=== PATIENT | male | born 1965 | race Caucasian/White ===

== ENCOUNTER 2017-07-25 09:30 | Outpatient (RCR) | payer OTHER, SELFPAY ==
--- NOTE | 2017-04-19 10:18 | HP.PTEVAL_ITS ---
Patient's Visit Information ANGE DEUTSCH JR is a 51 year old M referred to Physical Therapy by Radha Almazan DO with a diagnosis of s/p L shoulder labral repair, biceps tenodesis and open subpec. Date of Evaluation: 04/18/17 Physical Therapist: Noble Moya - Visit Plan Frequency: 2-3x /Week Duration: 8-12 weeks Plan: Start with PROM of L shoulder, no active elbow flexion. Add in inferior glides of GH joint with abd and flexion, avoid greater than 25deg of ER unitl following up with physician. Progress per protocol. - Subjective Subjective: Pt. is here today for his initial evaluation with diagnosis of s/p L shoulder labral repair, biceps tenodesis and open subpec. DOS: 03/15/17. Pt. reports no pain at rest. Pt. reports sleeping in reclinging chair with occassionally waking up at night. Pt. denies N/T in either UE. Pt. has been completing all HEP instructed by physician. 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 He reports initial injury happened years ago and his symptoms were progressively getting worse, trialed conservative treatment, but ultimately had surgery. He is to follow up with physician next week. Pt. is hopeful to reduce symptoms, regain motion and strength in order to get back to work without limitations. - Pain L shoulder Pain Intensity (Out of 10): 2 Pain Intensity Range: 1, 4 - Objective POSTURE: Pt. keeps LUE in guarded positioning at side across waist. Pt. has slightly elevated L shoulder (gaurding). Slight fwrd head positioning. Slightly rounded shoulders, bilaterally. PALAPTION: Pt. has normal well healing port holes, no signs of infection. Pt. has slight tenderness at LUT, L subacromial space and L biceps region. No pain in cervical spine and scapular muscles. NEUROLOGICAL: Pt. has normal sensation throughout bilateral UEs to light and shapr touch. Pt. has 2+ triceps bilaterally, did not test biceps. ROM : RUE- shoulder active- flexion 178deg, abd 177deg, functional ER C6, functional IR T10. LUE- PROM- flexion full, ext lacking 5deg. Shoulder0- flexion 91deg, abd 86deg, ER at 30deg of abd 12deg, IR at 30deg of abd 47deg. MMT- DNT LUE. RUE- wrist/elbow/shoulder 5/5 throught. - Goals Goal 1:: Pt. to be I with HEP. Goal Time Frame: 4-6 Weeks Goal 2:: Pt. to have increased PROM to full motion of L shoulder and elbow. Goal Time Frame: 4-6 Weeks Goal 3:: Pt. to ahve full AAROM of L shoulder with minimal increase in symptoms allowing for increased quality of life. Goal Time Frame: 4-6 Weeks Goal 4:: Pt. to be able to sleep in bed without increase in symptoms allowing for increased quality of life. Goal Time Frame: 4-6 Weeks Goal 5:: Pt. have improved strength to greater than 4/5 with MMT of L shoulder allowing for increased ability to complete ADLs and work activities. Goal Time Frame: 8-12 Weeks - Rehabilitation Potential Physical Therapy Diagnosis: Pt. has signs and symptoms consistent with s/p L shoulder labral repair, biceps tenodesis and open subpec and subsequent hypomobility, weakness, pain and decreased functional use of LUE. Pt. would benefit from PT to increase ROM, progress strength and get back to work releated activities once able. Rehabilitation Potential: Good - Anticipated Interventions Patient/Client Instruction: Educate patient on: Condition, Plan of Care, Risk Factors, Benefits of Fitness Program For the Purpose of:: To foster healthy habits, To improve decision making, To facilitate caregiver knowledge, To improve self management, To prevent re-injury , To improve ability to perform tasks related to life management, To improve tolerance to ADL's Therapeutic Exercise to Include: Strength training, Power training, Postural training, Flexibilty training, Passive ROM, Active ROM For the Purpose of:: To decrease pain, To increase ROM, To increase oxygenation perfusion, To improve muscle performance and motor function, To improve performance and independence with ADL's, To improve health of tissue, To decrease soft tissue restriction, To increase flexibility/ROM Manual Therapy Techniques to Include: Mobilization, Soft tissue mobilization For the Purpose of:: To decrease pain, To decrease swelling/inflammation, To increase ROM, To increase oxygenation perfusion, To improve muscle performance and motor function IF ES: Yes Cryotherapy (ice pack, ice massage): Yes For the Purpose of:: To decrease pain, To decrease swelling/inflammation, To increase ROM Thank you for the opportunity to evaluate your patient. For Medicare and Medicare HMO plans, please review the plan of care and approve it. It will need to be FAXED BACK to us at [phone] for Medicare purposes. Please let me know if there are questions or concerns regarding this plan of care. Physician Signature: Date:
--- NOTE | 2017-06-26 07:48 | HP.PTREVAL_ITS ---
Radha Almazan, DO, It has been my pleasure to treat ANGE DEUTSCH JR over the last 11 visits for s/p L shoulder labral repair, biceps tenodesis and open subpec. Please see the progress note below for an update on the physical therapy plan of care! Subjective: Pt reports that he is feeling good. Returns to Dr. Almazan tomorrow. Objective/Function: Talked with pt. this date after he met with physician. Physician wants us to continue with ROM into rotations and end range overhead. Progress strengthening once ready. pt. reports no pain over the phone. Pt. is lacking ~10deg of end range flexion and abduction. He has greatest limitation into functional ER and IR, C3 and L5 respectively. Pt. has 4-/5 strength throughout. He is using his arm more freely, but contiunes to lack necessary strength and stability. Pt. 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 Plan Plan: Asking for visit extension this date to x2 per weeks for another 4 weeks. Pt. to continue with end range PROM, AAROM and light strengthening as this point in time. Goals Goal 1:: Pt. to be I with HEP. Goal Time Frame: 4-6 Weeks Goal Progress: Goal Met Goal 2:: Pt. to have increased PROM to full motion of L shoulder and elbow. Goal Time Frame: 4-6 Weeks Goal Progress: Progressing Goal 3:: Pt. to ahve full AAROM of L shoulder with minimal increase in symptoms allowing for increased quality of life. Goal Time Frame: 4-6 Weeks Goal Progress: Progressing Goal 4:: Pt. to be able to sleep in bed without increase in symptoms allowing for increased quality of life. Goal Time Frame: 4-6 Weeks Goal Progress: Goal Met Goal 5:: Pt. have improved strength to greater than 4/5 with MMT of L shoulder allowing for increased ability to complete ADLs and work activities. Goal Time Frame: 8-12 Weeks Goal Progress: Progressing Anticipated Interventions Patient/Client Instruction: Educate patient on: Condition, Plan of Care, Risk Factors, Benefits of Fitness Program For the Purpose of:: To foster healthy habits, To improve decision making, To facilitate caregiver knowledge, To improve self management, To prevent re-injury , To improve ability to perform tasks related to life management, To improve tolerance to ADL's Therapeutic Exercise to Include: Strength training, Power training, Postural training, Flexibilty training, Passive ROM, Active ROM For the Purpose of:: To decrease pain, To increase ROM, To increase oxygenation perfusion, To improve muscle performance and motor function, To improve performance and independence with ADL's, To improve health of tissue, To decrease soft tissue restriction, To increase flexibility/ROM Manual Therapy Techniques to Include: Mobilization, Soft tissue mobilization For the Purpose of:: To decrease pain, To decrease swelling/inflammation, To increase ROM, To increase oxygenation perfusion, To improve muscle performance and motor function IF ES: Yes Cryotherapy (ice pack, ice massage): Yes For the Purpose of:: To decrease pain, To decrease swelling/inflammation, To increase ROM Please do not hesitate to contact me at [phone] by phone or Fax: if you have questions or concerns regarding this new plan of care! Sincerely, Noble Moya
--- NOTE | 2017-10-16 07:57 | HP.PTDCNRP_ITS ---
HP - Discharge Summary (1) - Patient Information ANGE DEUTSCH was seen in my office for initial evaluation on 04/18/17. The following Plan of Care was established for this patient: Initial Frequency: 2-3x /Week Initial Duration: 8-12 weeks - Anticipated Interventions Patient/Client Instruction: Educate patient on: Condition, Plan of Care, Risk Factors, Benefits of Fitness Program For the Purpose of:: To foster healthy habits, To improve decision making, To facilitate caregiver knowledge, To improve self management, To prevent re-injury , To improve ability to perform tasks related to life management, To improve tolerance to ADL's Therapeutic Exercise to Include: Strength training, Power training, Postural training, Flexibilty training, Passive ROM, Active ROM For the Purpose of:: To decrease pain, To increase ROM, To increase oxygenation perfusion, To improve muscle performance and motor function, To improve performance and independence with ADL's, To improve health of tissue, To decrease soft tissue restriction, To increase flexibility/ROM Manual Therapy Techniques to Include: Mobilization, Soft tissue mobilization For the Purpose of:: To decrease pain, To decrease swelling/inflammation, To increase ROM, To increase oxygenation perfusion, To improve muscle performance and motor function IF ES: Yes Cryotherapy (ice pack, ice massage): Yes For the Purpose of:: To decrease pain, To decrease swelling/inflammation, To increase ROM This patient was last seen in our office 07/25/17. Pertinent comments regarding their Physical therapy will appear below: Pt. was seen for her R RTC repiar. HE progressed as expected with PT. He was in his last phase of strengthening, but continued to have heavy, fatigue feeling with increased lifting. He had progress as expected with ROM. He was to trial PT on own and follow up with PT if needed. Pt. has not been seen in ~3 months and will be DC from PT at this point in time. At this point I will be discontinuing this patient from physical therapy. I would be happy to see this patient again in the future if found appropriate by the physician. Thank you! Noble Moya
== END 2017-07-25 19:00 | disposition home or self-care (01) ==
LOC: PT 09:30
PROVIDERS: Family Provider Family Medicine; PCP Family Medicine; Visit Provider Orthopaedic Surgery
DX: Z98.890 Other specified postprocedural states (principal)
CPT/HCPCS: 97014; 97110; 97161; G0283

== ENCOUNTER → 2019-01-31 | Outpatient (CLI) | payer OTHER, SELFPAY ==
[2018-11-13 13:50] VITALS: BMI 36.2
--- NOTE | 2019-01-31 09:39 | US_ITS ---
STUDY: THYROID ULTRASOUND REASON FOR EXAM: Male, 53 years old. Tightness in throat, voice change TECHNIQUE: Ultrasound evaluation of the thyroid was performed with real-time and static montano-scale imaging. COMPARISON: None. FINDINGS: RIGHT LOBE: The right lobe of the thyroid gland measures 4.9 x 2.2 x 2.1 cm. There is a homogeneous echotexture. 2 separate solid lesions, larger measures 0.8 x 1.2 x 0.7 cm, the smaller measures 0.5 x 0.5 x 0.4 cm.. LEFT LOBE: The left lobe of the thyroid gland measures 5.5 x 1.9 x 1.6 cm. There is a homogeneous echotexture. 2 separate solid nodules noted as well, larger measures 0.9 x 0.7 x 0.7 cm, smaller measures 0.5 x 0.5 x 0.3 mm ISTHMUS: The isthmus measures 3.0 mm. The regional lymph nodes are normal. There is hyperemia. US/Thyroid IMPRESSION: Enlarged homogeneous thyroid gland with hyperemia. 2 separate solid nodules noted in each thyroid lobe, largest measures slightly more than 1 cm in the right lobe, and slightly less than 1 cm in the left lobe. Because there are no previous studies available for comparison, and sonography cannot distinguish between benign and aggressive nodules, further evaluation with thyroid uptake study recommended. If any nodule should demonstrate suspicious characteristics, biopsy would be recommended for further evaluation. If not, six-month follow-up recommended to assure stability Electronically Signed: Dutch Womack MD at 11:33 EDT , Service support ,
== END | disposition home or self-care (01) ==
LOC: US 09:37
PROVIDERS: Family Provider Family Medicine; PCP Family Medicine; Referring Provider Family Medicine; Visit Provider Family Medicine
DX: R49.9 Unspecified voice and resonance disorder (principal)
CPT/HCPCS: 76536

== ENCOUNTER → 2019-02-11 | Outpatient (CLI) | payer OTHER, SELFPAY ==
[2018-11-13 13:50] VITALS: BMI 36.2
--- NOTE | 2019-02-11 08:20 | NM_ITS ---
CLINICAL: 53-year-old male with reported history of thyroid nodularity and complaint of dysphagia and hoarseness. I-123 THYROID UPTAKE and SCAN COMPARISON: Thyroid ultrasound report 01/31/2019 FINDINGS: The patient was administered a 329 uCi I-123 capsule by mouth. The 4-hour I-123 radioactive iodine thyroidal uptake was calculated to be 12.5 % (normal 5 to 25 %). The 24-hour I-123 radioactive iodine thyroidal uptake was calculated to be 26.8 % (normal 5 to 40 %). The I-123 thyroid scan demonstrates homogeneous radiopharmaceutical concentration throughout both lobes of a U-shaped thyroid gland. There are no colloidal parenchymal hypofunctioning cold nodules noted in either lobe of the thyroid gland. NM/Thyroid Uptake Single or Mult IMPRESSION: 1. NORMAL 4- and 24-hour I-123 radioactive iodine thyroidal uptakes. 2. The I-123 thyroid scan is consistent with stage I nodular colloid goiter secondary to the presence of isthmus radiopharmaceutical concentration. (Reese et al, J Nucl Med 32: 1455, 1990). 3. No hypofunctioning-cold nodules are identified. Electronically Signed: Rex Purcell DO at 0:37 EDT Tel , Service support ,
== END | disposition home or self-care (01) ==
LOC: NM 08:18
PROVIDERS: Family Provider Family Medicine; PCP Family Medicine; Referring Provider Family Medicine; Visit Provider Family Medicine
DX: E04.2 Nontoxic multinodular goiter (principal)
CPT/HCPCS: 78012; A9516

== ENCOUNTER → 2019-07-19 09:44 | Outpatient (CLI) | payer OTHER, SELFPAY ==
[2019-06-20 16:04] VITALS: BMI 36.2
--- NOTE | 2019-07-19 09:48 | US_ITS ---
STUDY: THYROID ULTRASOUND REASON FOR EXAM: Male, 53 years old. F/U NODULES TECHNIQUE: Ultrasound evaluation of the thyroid was performed with real-time and static montano-scale imaging. COMPARISON: Thyroid ultrasound January 31, 2019; nuclear medicine thyroid uptake and scan February 11, 2019 FINDINGS: RIGHT LOBE: The right lobe of the thyroid gland measures 5.2 x 2.1 x 1.8 cm. There is a homogeneous echotexture. A stable, heterogeneous 9.9 x 6.7 x 10 mm solid nodule with some intralobular nodular flow on color Doppler is again noted in the posterior lower pole. Anterior and just inferior to this is a stable 6.3 x 4.0 x 5.1 mm solid nodule with hypoechoic rim LEFT LOBE: The left lobe of the thyroid gland measures 5.1 x 1.8 x 1.8 cm. There is a homogeneous echotexture. Well-defined 8.4 x 7.0 x 7.1 mm nodule with calcified anterior margin is again seen in the lower pole. Just superior to this is a stable, moderately defined 5 x 2.4 x 5.1 mm hypoechoic nodule. ISTHMUS: The isthmus measures 4 mm. Moderately defined 4.7 x 5.3 x 2.15 mm nodule with a hypoechoic rim is now apparent in the right thyroid isthmus. The regional lymph nodes are normal. US/Thyroid IMPRESSION: Stable bilateral thyroid nodules, as described, consistent with a multinodular goiter. Electronically Signed: Dutch Pacheco MD at 12:24 EST , Service support ,
== END ==
PROVIDERS: Family Provider Family Medicine; PCP Family Medicine; Referring Provider Family Medicine; Visit Provider Family Medicine
DX: E04.2 Nontoxic multinodular goiter (principal)
CPT/HCPCS: 76536

== ENCOUNTER → 2019-12-27 15:21 | Outpatient (CLI) | payer OTHER, SELFPAY ==
[2019-06-20 16:04] VITALS: BMI 36.2
--- NOTE | 2019-12-27 15:24 | US_ITS ---
STUDY: THYROID ULTRASOUND REASON FOR EXAM: Male, 54 years old. F/U NODULES TECHNIQUE: Ultrasound evaluation of the thyroid was performed with real-time and static montano-scale imaging. COMPARISON: Prior thyroid ultrasound of December 18, 2019 FINDINGS: RIGHT LOBE: The right lobe of the thyroid gland measures 5.7 x 1.8 x 2.0 cm. There is a homogeneous echotexture. There is a 14 x 12 x 8 mm solid nodule of the lower pole and a 2 x 7 x 4 mm nodule of the lower pole which do not appear to be substantially changed on [id number] comparison. LEFT LOBE: The left lobe of the thyroid gland measures 5.7 x 1.8 x 1.9 cm. There is a homogeneous echotexture. There is a 7 x 7 x 6 mm solid nodule of the lower pole with calcific rim and shadowing and an adjacent ovoid solid nodule measuring 6 x 4 x 3 mm not substantially changed on [id number] comparison. ISTHMUS: The isthmus measures 4 mm. There is a 5 x 4 x 2 mm solid nodule in the isthmus to the right of midline not changed from prior exam.. The regional lymph nodes are normal. US/Thyroid IMPRESSION: No substantial change from the prior exam. Multiple nodules as listed above have not changed on [id number] comparison Electronically Signed: Chioma Nix MD at 16:05 EDT , Service support ,
== END ==
PROVIDERS: PCP Family Medicine; Referring Provider Family Medicine; Visit Provider Family Medicine
DX: E04.2 Nontoxic multinodular goiter (principal)
CPT/HCPCS: 76536

== ENCOUNTER → 2020-08-06 | Outpatient (CLI) | payer OTHER, SELFPAY ==
[2020-07-10 09:24] VITALS: BMI 37.0
== END | disposition home or self-care (01) ==
PROVIDERS: PCP Family Medicine; Referring Provider Family Medicine; Visit Provider Family Medicine
DX: U07.1 COVID-19 (principal)
CPT/HCPCS: 87635; C9803; U0005; U0003

== ENCOUNTER → 2020-09-08 13:00 | Outpatient (CLI) | payer OTHER, SELFPAY ==
[2020-07-10 09:24] VITALS: BMI 37.0
== END ==
PROVIDERS: PCP Family Medicine; Referring Provider Family Medicine; Visit Provider Family Medicine
DX: G47.19 Other hypersomnia (principal); R06.83 Snoring; R53.83 Other fatigue
CPT/HCPCS: 95806

== ENCOUNTER → 2020-09-21 10:33 | Outpatient (CLI) | payer OTHER, SELFPAY ==
[2020-07-10 09:24] VITALS: BMI 37.0
== END ==
PROVIDERS: PCP Family Medicine; Visit Provider Family Medicine
DX: Z46.89 Encounter for fitting and adjustment of other specified devices (principal)

== ENCOUNTER 2021-08-02 09:11 | Outpatient (RCR) | payer OTHER, SELFPAY ==
--- NOTE | 2021-08-02 09:00 | BH.SGPN.GN ---
Behaviors/Verbalizations/Mental Status: [] Eye contact is fair. Motor activity is appropriate. Appearance is casual. Speech is Appropriate. Mood is depressed and anxious. Affect is constricted. Thoughts are linear and logical. No evidence of psychosis. Reviewed daily check in sheet and no SI indicated. Client Response/Progress/Benefit: [] Pt was an en engaged participant AEB sharing openly with group and attentive to others. Emotion for today is optimistic. Pt stated this weekend was busy which he reported is now stressful for him. Pt reported in the past he was a very outgoing, social person but recently hasn't been wanting to be around others. Pt stated he should be able to enjoy spending time with others but would rather just stay home. Pt identified mental health positive as using opposite action to make himself go out with friends/family over the weekend. Benefited from group support, encouragement, and feedback from group. Will continue IOP to improve daily functioning, increase healthy coping skills and prevent decompensation.
--- NOTE | 2021-08-02 09:15 | BH.COMM ---
Communication Note - Communication with Client Communication Note: Met with patient to complete initial paperwork. No significant changes since pre-admission screening. Completed [place] suicide screening with low risk. Denies active SI, plan, or intent in the past [address] 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
--- NOTE | 2021-08-02 10:05 | BH.SGPN.GN ---
Behaviors/Verbalizations/Mental Status: []Client alert and oriented, casually dressed and groomed. Eye contact good. Motor activity appropriate. Speech within normal limits. Affect congruent, mood anxious. Thoughts linear, logical, no signs of hallucinations or delusions. Client Response/Progress/Benefit: []Client responded well to session AEB contributing to group discussion and listening attentively to others. Group worked together to define anger and discussed its internal and external impacts. Client discussed how anger can cause physical symptoms including high blood pressure and increased heart rate. Client completed the anger iceberg exercise and identified emotions that tend to underlie anger. Client gained awareness of their typical response to anger, which includes: being critical of others, making mean comments, feeling jealous of others, and having a short temper. Client identified embarrassment, lack of control, fear, and anxiety among emotions that often come out as anger. Client appeared to benefit from increased understanding of the impact of anger on mental health. Will continue IOP treatment to increase mood stability and depression management skills. Narrative Note: []
--- NOTE | 2021-08-02 11:11 | BH.SGPN.GN ---
Behaviors/Verbalizations/Mental Status: []Client alert and oriented, casually dressed and groomed. Eye contact good. Motor activity appropriate. Speech within normal limits. Affect congruent, mood anxious and depressed. Thoughts linear, logical, no signs of hallucinations or delusions. Client Response/Progress/Benefit: []Pt first day in treatment, did well to engage AEB participating in discussion, completing group activity, and taking notes. Pt did well to use calming and self-regulation skills to cope with frustrations while working with group to complete the challenge activity. Reflecting that adjusting expectations aided in improving his ability to not get frustrated in the activity. Contributed as participants worked to brainstorm healthy coping skills for better managing anger which included: reaching out to supports, art, taking breaks, exercise, DDD, and proactively communicating needs with supports. Pt appeared to benefit from identifying different techniques to manage anger as well as gaining awareness of the potential internal and external costs of anger. Pt selected having a coin or texture object to fidget with as a skill to begin practicing to better manage anger. Will continue IOP tx to continue to increase mental health insight, improve healthy coping repertoire, as well as prevent decompensation. Narrative Note: []
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
--- NOTE | 2021-08-04 10:10 | BH.SGPN.GN ---
Behaviors/Verbalizations/Mental Status: []Eye contact is good. Motor activity is appropriate. Appearance is casual. Speech is WNL. Mood is dysthymic. Affect is constricted. Thoughts are linear and logical. No evidence of psychosis. Client Response/Progress/Benefit: [] Pt was an active participant in group discussions. Attentive during psychoeducation. Pt along with peers added their perspective on the definition of stigma as it relates to mental health. Pt participated in interactive group discussion on the topic. Pt worked with group to identify impact of stigma. Pt stated social stigma has kept him from staying on medications, not seeking help, hiding his depression, and minimizing symptoms. Pt reported self-stigma has impacted him by limiting his life goals, hiding his symptoms, and fear of being found out. Benefited from increased awareness of mental health stigma and how it could impact patient. Will continue in IOP to increase utilization of healthy supports, improve healthy coping skills, and prevent decompensation.
[2021-08-04 10:44] VITALS: BP 140/92; PULSE 57
--- NOTE | 2021-08-04 11:13 | BH.SGPN.GN ---
Behaviors/Verbalizations/Mental Status: []Client alert and oriented, casually dressed and groomed. Eye contact good. Motor activity appropriate. Speech within normal limits. Affect congruent, mood depressed and anxious. Thoughts linear, logical, no signs of hallucinations or delusions. Client Response/Progress/Benefit: []Client engaged participant AEB client participating in the activity, providing some input during small group discussion, and listening attentively to others. Continues to do well in making progress in overall group participation. Group brainstormed strategies to combat social and perceived stigma which included: educating themselves and others, no longer using negative language about mental illness, communicating with supports, advocacy, and attending support groups. Client shared one thing he can personally do to combat stigma is to more openly speak with his family about his mental health, as well as encourage them to open up about their own mental health struggles. Appeared to benefit from increasing awareness of strategies to combat stigma. Will continue IOP tx to continue to promote acceptance of his mental health struggles, reduce distorted thinking patterns which reinforce depression and anxiety, and continue to improve healthy coping skills and communication with supports. Narrative Note: []
--- NOTE | 2021-08-04 12:38 | PCM.BH.PSYEV ---
Psychiatric Evaluation Initial Evaluation Initial Evaluation: History of Present Illness: [] The patient is a 55-year-old male who has been for 12 years to his second and currently lives with his , 23-year-old daughter, 7-year-old steps daughter and 21-year-old stepson. The patient was referred to the [facility] behavioral health IOP program by his counselor and his primary care doctor for worsening symptoms of depression and panic attacks which have resulted in him being increasingly unable to function in the past few months. 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 The patient's current is 43 years old and she is supportive and is a police academy instructor. The patient feels his symptoms of depression started in March 2021 which was the third year anniversary of his father's . He denies any other recent stressors. He endorses having regret about past decisions and actions of his and guilt and panic attacks. His panic attacks were severe and frequent however they have improved since he was placed on Zoloft 1 month ago and his most recent panic attack was 3 weeks ago. He was feeling hopeless but he said he is much less hopeless now. He does endorse feeling guilty still but no worthlessness. He is depressed but less depressed than he was a month ago before starting Zoloft. He still has decreased motivation and has been isolating himself. He is still not enjoying too many things. He used to be a runner and run every day in the past and even do marathons however he was injured in the past. He used to exercise daily but the most recent time he exercised was 3 weeks ago. His appetite was a little decreased but he feels it is okay now and he has lost a lot of weight up to 49 pounds but he says that the weight loss was intentional over the past year and he has been trying to lose weight. He feels his weight is stable now and he is not losing. His sleep was decreased but is now up to set 6 or 7 hours a night since starting Zoloft 1 month ago. Energy level is low concentration is better now but still not normal. He endorses having passive thoughts that he would not care if he but less now than he was a month ago. He denies suicidal ideation, plan for suicide, thoughts of self-harm, homicidal ideation, hallucinations, delusions or symptoms of matthew ever. He is a worrier by nature and is and he has been ruminating negatively. He denies a history of OCD, eating disorder, trauma or PTSD. He does avoid looking at any pictures of his family from the past because this triggers feelings of grief, loss and guilt still. Current Psychiatric Medications: [] Zoloft 100 mg p.o. daily (started June 28, 2021 and the dose was increased to 100 mg 2 weeks ago); Xanax 1 mg, 1/2 tablet p.o. nightly as needed for panic attack (he last took this several weeks ago and has not needed it lately) Past Psychiatric History: [] No psychiatric admissions ever. No suicide attempts ever. He has seen a counselor twice only. He first took psych medications after his divorce at age 38 and that is when he got his first panic attacks and his first experience with counseling. He was first depressed in seventh grade and then he was depressed off and on his whole life since about every 3 to 4 years. He feels his depression has worsened in severity as he got older. His past medications include only Prozac and he has gone on and off this medication for many years. No other psych meds ever. Substance Use History: [] He chewed tobacco for 20 years but he quit this 13 years ago. He never smoked cigarettes. No vaping. He used marijuana only about 15 times and has not used it since his teen years. He used cocaine twice in college only and none since. No other drug use ever. No rehab ever. He drinks alcohol about 2-3 drinks weekly lately. Has never been a heavy drinker or had a problem with alcohol. Allergies: [] No known allergies Medications: [] No other medications currently Past Medical History: [] GERD, obstructive sleep apnea which he uses CPAP for.; He had COVID-19 in August 2020 but had no respiratory symptoms and was not hospitalized and has no sequela. History of kidney stones in the past. He had back surgery for an L4 disc issue in the past and had left shoulder surgery. He also had a cholecystectomy in the past. Family Psychiatric History: [] Father at age 84 of complications from a stroke and other. His father had his first stroke at age 66 or so. Mother is 78 years old and living. His daughter has depression and anxiety but he is not sure if anyone else in the family has had any issues with mental health because his family does not talk about these issues. He had a paternal uncle committed suicide with a gun when he was over 80 years old. No other suicides in the family. His paternal grandfather and paternal uncles have alcoholism. Personal/Social History: [] The patient was born in [place] and raised in [place] until eighth age third grade when they moved back to [place]. His parents were and loving parents. His father was not affectionate but there was no verbal physical or sexual abuse. The patient is the middle child and has a brother 2 years older and a brother 2 years younger than him. They were close when young but are less close now. School was good for him and he liked it but grades were not very important to him. He had friends some play football and track. 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 He got for the first time at age 31 and this marriage lasted 7 years. He has one 23-year-old daughter from that marriage. He says the divorce was his fault it was due to his depression and anger issues. Marriage #2 was 12 years ago and has no abuse in it. His is supportive of him. He has a 21-year-old stepson and a 7-year-old stepdaughter with his current . Legal History: [] No arrests. 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 No DUIs. No . Review of Systems: [] Some chronic pain issues in his back and shoulder but otherwise negative. Vital Signs: [] Reviewed in nurses notes. Mental Status Examination: [] Patient is a 55-year-old male who is seen wearing a mask and is casually dressed and groomed with good hygiene. He is ambulatory with a normal gait and appears normal for his stated age. He has no psychomotor agitation or retardation. He is cooperative and pleasant during the interview. Eye contact is good and speech is normal rate and rhythm and fluent with no pressure. Mood is depressed. Affect is constricted. Thought process is goal-directed and organized. Thought content: There is evidence of passive thoughts of but there is no evidence of suicidal ideation, plan for suicide, thoughts of self-harm, homicidal ideation, hallucinations, delusions or symptoms of matthew ever. Reality testing is intact. Intelligence is above average. Judgment is intact. Insight is fair to good. Impulsivity is low. Diagnoses: [] 1. Major depressive disorder, recurrent, severe without psychosis 2. Generalized anxiety disorder 3. Obstructive sleep apnea 4. Primary support and loss issues Plan: [] The patient will start the IOP program at [facility] in behavioral health as the structure, support, education, and group therapy will hopefully prevent worsening of the patient's symptoms which might require hospitalization. He felt safe during the interview and if it anytime he does not feel safe he will let us know or go to the emergency room. The risk, options, possible complications and side effects of medications were discussed with the patient and he understands and accepts these. He is tolerating the Zoloft well but feels that it is possible that the Zoloft decreased his sexual desire lately. He is not sure because he feels this could be due to the depression. The patient is counseled to stay on his Zoloft for at least 12 months or all the time because he keeps going on and off his medication and relapsing. He is encouraged to exercise daily since he used to be a runner and this might enable him to require less medication for his depression and anxiety. We may not increase the Zoloft dose over the current 100 mg dose as the patient is worried about sexual side effects are becoming numb feeling. We may add Wellbutrin later if the patient requires more medication for depression and anxiety. I will see the patient in follow-up in 2 weeks and he will continue to follow-up with his outpatient psychiatric and medical providers.
--- NOTE | 2021-08-04 12:52 | BH.DR.ITP ---
Initial Treatment Plan Patient Information Visit Information: ADMISSION DATE: EXPECTED LOS: 4-6 weeks Problems/Symptoms Problem #1:: Depression Symptom:: Sadness, lack of motivation, hopelessness, guilt, anhedonia, biological disruption of appetite, low energy, decreased concentration, passive thoughts of Problem #2:: Anxiety Symptom:: Rumination, worry, panic attacks, avoidance
--- NOTE | 2021-08-06 09:05 | BH.SGPN.GN ---
Behaviors/Verbalizations/Mental Status: [] Pt eye contact good, casually dressed, motor activity appropriate, speech normal rate and tone, mood euthymic and anxious, congruent affect, thoughts linear and intact, no evidence of delusions or hallucinations. Reviewed client?s symptom tracker, no indication of suicidal ideation, plan, or intent as of today. Client Response/Progress/Benefit: []Pt responded well to session AEB by listening to others, providing supportive feedback, and sharing thoughts and feelings with group. Pt reports mood as ?optimistic?, sharing that he took a major step in his communication with his children by speaking with them about his mental health. Expressed this as being very difficult and anxiety provoking as he was afraid of sharing them or being a cause for anxiety; however, found instead that they were supportive and proud of pt for doing so. Went on to note feeling more relieved since allowing himself to seek treatment and be more open about his mental health. Discussed feeling more capable of focusing and able to keep himself busy without needing others around. Progress noted in improved mood and communication with supports. Recommended continued IOP to further decrease anxiety and challenge stigma associated with mental health, improve skill knowledge and application, as well as prevent decompensation. Narrative Note: []
--- NOTE | 2021-08-06 10:10 | BH.SGPN.GN ---
Behaviors/Verbalizations/Mental Status: []Client alert and oriented, casually dressed and groomed. Eye contact good. Motor activity appropriate. Speech within normal limits. Affect congruent, mood euthymic. Thoughts linear, logical, no signs of hallucinations or delusions.[] Client Response/Progress/Benefit: []Pt was an attentive participant AEB taking notes and contributing throughout. Attentive during psychoeducation on Conflict Styles ( Avoidant, Competing, Accommodating, and Collaborating). Participated in interactive group discussion on benefits of conflict.? Pt agreed with peers that he has seen conflict as a bad thing based on past circumstances. Pt along with peers identified several reasons conflict is often avoided which included: anxiety, fear of other?s reaction, not wanting to face additional conflict, and negative past experiences. Pt reported connecting most competing and avoiding styles. Pt stated often his knee jerk reaction is to be competing which can cause issues with relationships. Reported avoiding results in needs not being met and holding on emotions. Benefited from increased awareness on conflict styles. Will continue in IOP to increase self-care, increase healthy coping and continue to improve ability to function.
--- NOTE | 2021-08-06 11:10 | BH.SGPN.GN ---
Behaviors/Verbalizations/Mental Status: []Client alert and oriented, casually dressed and groomed. Eye contact good. Motor activity appropriate. Speech within normal limits. Affect constricted, mood dysthymic. Thoughts linear, logical, no signs of hallucinations or delusions. Client Response/Progress/Benefit: []Client engaged in session AEB contributing to discussion and engaging in activity. Client did well to review conflict styles and the various impacts of each on mental health. Client participated in activity and was actively listening to peers? suggestions at times, as well as was willing to be assertive when the potential conflict was important. Client attentive on education about fair fighting rules handout. To better address conflict, client wants to work on expressing feelings with words. Client reported if he starts expressing how he feels there is hope he can have better resolutions. Appeared to benefit from gaining strategies to help client better manage conflict. Client is to continue IOP to increase healthy coping, improve daily functioning and prevent decompensation.
--- NOTE | 2021-08-09 09:00 | BH.SGPN.GN ---
Behaviors/Verbalizations/Mental Status: [] Eye contact is good. Motor activity is appropriate. Appearance is casual. Speech is appropriate. Mood is anxious. Affect is congruent. Thoughts are linear and logical. No evidence of psychosis. Reviewed daily symptom tracker sheet with no reports of suicidal ideations, plan, or intent. Client Response/Progress/Benefit: [] Client was engaged and provided insight to others throughout group session. Client reported his emotion as ?apprehensive?. Client discussed having to drive to [place] by himself, and having ?a lot going on this week?. Client discussed feeling worried about ruminating while driving by himself. Group discussed possible options to help this, including making a playlist of his favorite music or listening to an audiobook, which the client appeared to benefit from. Client also discussed taking his daughter to a college visit in [place], which was also very stressful, but that he was able to manage his feelings. Client stated that he believes that his medications are helping. Clinician challenged client to acknowledge his accomplishments and use of healthy coping skills in tandem with his medication, which client responded well to. Progress noted AEB client?s report of managing his emotions during stressful situations this weekend. Will continue IOP treatment to increase self-compassion and decrease rumination. Narrative Note: []
--- NOTE | 2021-08-09 10:05 | BH.SGPN.GN ---
Behaviors/Verbalizations/Mental Status: []Client alert and oriented, casually dressed and groomed. Eye contact good. Motor activity appropriate. Speech within normal limits. Affect constricted, mood dysthymic. Thoughts linear, logical, no signs of hallucinations or delusions. Client Response/Progress/Benefit: []Pt was an engaged participant AEB pt listening attentively to others and providing input throughout. Attentive during psychoeducation on communication styles. Assisted group with identifying benefits of effective communication on mental health which included: getting needs met, improves relationships, maintains boundaries, and prevents additional conflict. Pt identified he most often uses passive communication style. Pt stated this leads his to believe he doesn't care about anything which can cause conflict. Benefited from increased awareness of different communication barriers, styles, and the importance of communicating effectively to improve mental wellness. Will continue IOP tx to improve daily functioning, increase healthy coping, and prevent decompensation.
--- NOTE | 2021-08-09 11:05 | BH.SGPN.GN ---
Behaviors/Verbalizations/Mental Status: []Client alert and oriented, casually dressed and groomed. Eye contact good. Motor activity appropriate. Speech within normal limits. Affect congruent, mood euthymic. Thoughts linear, logical, no signs of hallucinations or delusions. Client Response/Progress/Benefit: []Pt was an active participant in group discussion. Attentive during psychoeducation on communication styles (Passive, Passive-Aggressive, Aggressive, and Assertive) and benefits/disadvantages to each style. Pt reflected on how his passive communication style has impacted his mental health and relationships. Participated in the group activity and learned DEAR MAN skill. Pt reports wanting to work on the mindfulness component of this skill by focusing on one topic at a time and not getting side-tracked. Benefited from learning DEAR MAN and setting a goal to improve communication. Will continue IOP tx to prevent decompensation, reduce negative thought patterns, and gain healthy coping skills. Narrative Note: []
--- NOTE | 2021-08-09 15:02 | BH.MDN ---
Multi-Disciplinary Note - Note 30-min Individual Time Started:: 12:03 Date: 08/09/21 Purpose of session/treatment goals addressed:: To gather information on client's current stressors, symptoms, triggers, and tx goals. Another goal was to build rapport and provide emotional support. Eye Contact:: Good Motor Activity:: Appropriate Appearance:: Casual Speech:: Appropriate Mood:: Anxious Affect:: Congruent Thoughts:: Linear, Logical, No evidence of hallucinations/delusions noted Staff Interventions:: rapport building, strengths perspective, treatment planning, goal setting Client Response:: Client responded well to session, open to meeting with therapist. Client reports he is enjoying group so far and that he is gaining good information. Client shared he had counseling over 20 years ago after his divorce and was first put on medications at age 40. Client stated he has been dealing with depression on and off since he was in middle school. Client shared he has had long periods of time when he felt stable, but he recently experienced a depressive episode. Client reports the trigger to his worsening depression was the anniversary of his father's and his 's father passing away before Pretty. Client stated he had been trying to cope by himself, but realized he needed more help. Client was put on Zoloft a month ago and he shared he already feels much less depressed. Client worries that he will stop taking Zoloft once he feels back to normal as client has a history of doing this. Discussed medication management and client understands that there is a chance he may need antidepressants long-term. Client hopes to learn healthy coping skills while in IOP and to get back to his baseline functioning. Risks/Concerns:: Client denies any suicidal ideations, plan, or intent as of 08/09/21. Admits to passive thoughts of , but denies any suicidal ideations. Denies any HI. Progress Toward Goals/Plan:: Client started IOP on 08/02/21 and he reports he enjoys the program so far. Client reports he has had depression on and off his entire life, but he recently experienced worsening depression starting in March. Client reports his symptoms are beginning to improve since starting Zoloft a month ago. However, client continues to endorse a depressed mood with anhedonia, lack of motivation, decreased concentration, and guilt. Client identified his treatment goals as learning healthy coping skills and getting back to his baseline functioning. Client reports he also hopes to not have to take medications in the future, but understands this may not be realistic. Will continue IOP tx to prevent decompensation, gain healthy coping skills, and improve daily functioning. Time Stopped:: 12:20
--- NOTE | 2021-08-09 15:03 | BH.MTP_ITS ---
[facility] Treatment Plan - Patient Information Program Physician:: Dr. Lala Beltrán Primary Therapist:: Adri HODGSON - Psychiatric Diagnoses Psychiatric Diagnoses:: Major depressive disorder, recurrent, severe without psychosis F 33.2; Generalized anxiety disorder Diagnosis Code(s):: F 33.2 - Estimated LOS Estimated LOS (in weeks):: 6 Problem/Goal #1 - Problem/Goal #1 Stated Goal:: Client will decrease depressive symptoms, guilt, anhedonia, and passive wishes due to major depression disorder. Description of Barriers: Client reports he struggles with asking for help from his supports due to feeling guilty. Client also admits that he tends to stop medications when he begins to feel better. Client acknowledges that he has some stigma about mental health and this has kept client from talking to his friends and family about his depression and anxiety. Functional Impact: Client is a 55-year-old male with a history of depression. Client was referred to [facility] by his outpatient therapist and PCP due to worsening depression which has been impacting client's functioning. Client reports worsening symptoms over the past month with no specific trigger. At intake, client endorsed poor sleep, poor appetite with a loss of 10 pounds in four weeks, low energy, no motivation, hopelessness, anhedonia, and isolative behaviors. Client also reported frequent panic attacks and excessive worry about regrets and past decisions. Client has been experiencing passive thoughts of , but denies any active SI. Client endorses inappropriate guilt and negative thinking patterns that reinforce isolation. Client's symptoms are impacting his overall functioning and relationships. Goal Relevant Strengths/Supports: Client is established with outpatient mental health services and has family support. - Objectives Objective #1 Stated Objective: Client will learn and utilize 2-3 healthy coping strategies to better manage depressive symptoms as shown by a reduced DSM-5 scores for depression. Interventions: Through group and individual sessions, therapist will help client identify triggers and warning signs of depression and emotional dysregulation including emotional, physical, and behavioral changes. Therapist will teach client various coping skills to manage symptoms and give client tangible resources to use to regulate emotions. Therapist will use cognitive restructuring techniques and help client gain awareness of negative thoughts that reinforce guilt and depression. Therapist will provide psychoeducation on maintenance cycles and help client learn ways to break unhealthy maintenance cycles. Therapist will help client incorporate behavioral activation and assist client in setting SMART goals. Discharge Criteria: Client will have met this goal when can report learning and using at least 2 coping skills to manage depressive symptoms. Additionally, client will have met this goal when depressive symptoms have reduced on the DSM- 5 assessment. Target Date: 09/13/21 Review Date: 08/30/21 Status: open Objective #2 Stated Objective: Client will identify at least 2-3 negative self-talk messages used to reinforce depression and guilt and replace thoughts with positive, realistic messages. Interventions: Therapist will help client identify distorted, negative beliefs about self and replace with more realistic, affirmative messages. Therapist will use CBT to help client increase insight to the connection between thoughts, emotions, and behaviors. Therapist will encourage client to practice thought challenging. Discharge Criteria: Client will have achieved this goal when can verbalize at least 2 negative self-talk messages and effectively replace those thoughts with affirmative messages. Target Date: 09/13/21 Review Date: 08/30/21 Status: open Problem/Goal #2 - Problem/Goal #2 Stated Goal:: Client will decrease intensity, duration, and frequency of anxiety and reduce avoidance. Description of Barriers: Client reports he struggles with asking for help from his supports due to feeling guilty. Client also admits that he tends to stop medications when he begins to feel better. Client acknowledges that he has some stigma about mental health and this has kept client from talking to his friends and family about his depression and anxiety. Functional Impact: Client is a 55-year-old male with a history of depression. Client was referred to [facility] by his outpatient therapist and PCP due to worsening depression which has been impacting client's functioning. Client reports worsening symptoms over the past month with no specific trigger. At intake, client endorsed poor sleep, poor appetite with a loss of 10 pounds in four weeks, low energy, no motivation, hopelessness, anhedonia, and isolative behaviors. Client also reported frequent panic attacks and excessive worry about regrets and past decisions. Client has been experiencing passive thoughts of , but denies any active SI. Client endorses inappropriate guilt and negative thinking patterns that reinforce isolation. Client's symptoms are impacting his overall functioning and relationships. Goal Relevant Strengths/Supports: Client is established with outpatient mental health services and has family support. - Objectives Objective #1 Stated Objective: Client will identify 2-3 anxiety triggers and 2 calming coping skills to reduce anxiety as shown by decreased DSM-5 cross cutting symptom measure scores. Interventions: Therapist will help client increase awareness of anxiety triggers and avoidance behaviors. Therapist will teach client various calming and mindfulness strategies to promote emotional regulation and reduction of anxiety. Therapist will encourage client to implement healthy coping skills on a regular basis and increase self-care in all areas. Discharge Criteria: Client will have accomplished this goal when can report at least 2 triggers for anxiety and 2 calming strategies to manage symptoms. Additionally, client will have accomplished this goal when she can report reduced DSM-5 cross cutting symptoms for anxiety. Target Date: 09/13/21 Review Date: 08/30/21 Status: open Objective #2 Stated Objective: Client will identify 2-3 cognitive distortions that lead to rumination and learn 2-3 ways to manage these thoughts to better manage anxiety and reduce avoidance. Interventions: Therapist will provide education on the most common cognitive distortions and teach client the connection between thoughts, emotions, and feelings. Therapist will assist client in identifying, challenging, and replacing dysfunctional thoughts with positive, more realistic thoughts. Therapist will use CBT and DBT techniques to help client gain awareness of thinking errors and learn how to more effectively handle negative thoughts. Discharge Criteria: Client will have accomplished this goal when can identify at least 2 cognitive distortions and at least 2 coping skills to manage negative thoughts. Target Date: 09/13/21 Review Date: 08/30/21 Status: open
--- NOTE | 2021-08-09 15:03 | BH.PSA_ITS ---
Source of Information - Presenting Problems/Circumstances Problems, Referral Source, Mental Status, Client: Client is a 55-year-old male with a history of depression. Client was referred to [facility] by his outpatient therapist and PCP due to worsening depression which has been impacting client's functioning. Client reports worsening symptoms over the past month with no specific trigger. At intake, client endorsed poor sleep, poor appetite with a loss of 10 pounds in four weeks, low energy, no motivation, hopelessness, an hedonia, and isolative behaviors. Client also reported frequent panic attacks and excessive worry about regrets and past decisions. Client has been experiencing passive thoughts of , but denies any active SI. Client endorses inappropriate guilt and negative thinking patterns that reinforce isolation. Client's symptoms are impacting his overall functioning and relationships. Psychiatric Presentation - Psych Issues & Need for Admission Psychiatric Issues:: Major depressive disorder, recurrent, severe without psychosis F 33.2; Generalized anxiety disorder Past Psychiatric History - Treatment Hx Treatment History: No psychiatric admissions ever. No suicide attempts ever. He has seen a counselor only twice in his life. Client first took psych medications after his divorce at age 38 and that is when he got his first panic attacks and his first experience with counseling. He was first depressed in seventh grade and then he was depressed off and on his whole life about every 3 to 4 years per his report. He feels his depression has worsened in severity as he got older. His past medications include only Prozac and he has gone on and off this medication for many years. No other psych meds ever. First hospitalization:: n/a Most recent hospitalization:: n/a Medication Trials:: Yes ECT Therapy:: No Age of first mental health symptoms: see tx history Describe (age, circumstance, etc) any past hospitalizations: n/a Current providers for mental health treatment (counselor, psychiatrist, test case developer, etc.): Client currently sees Sofya at [facility] for individual counseling. Development & Family of Origin - Childhood Significant Childhood Events: Client born in [place] and raised in [place] until eighth age third grade when they moved back to [place]. His parents were and loving parents. His father was not affectionate but there was no verbal physical or sexual abuse - Family Who currently lives in your home?: Client has been for 12 years to his second and currently lives with his , 23-year-old daughter, 7-year-old step daughter, and 21-year-old stepson Describe family composition:: Client's parents were and loving parents, but his father was not affectionate but there was no verbal physical or sexual abuse. Client is the middle child and has a brother 2 years older and a brother 2 years younger than him. They were close when young but are less close now. Client got for the first time at age 31 and this marriage lasted 7 years. Client has one 23-year-old daughter from that marriage. He says the divorce was his fault and it was due to his depression and anger issues. Client again and is still to his current of 12 years. His is supportive of him and client denies any abuse in the relationship. He has a 21-year-old stepson and a 7-year-old stepdaughter with his current . - Family History Family History: Family History (Last Reviewed 07/10/20 @ 09:28 by Melania Salazar) Father Atrial fibrillation Hypertension Hyperlipidemia CVA (cerebral vascular accident) Mother Hypertension Hyperlipidemia Family Hx of Psychiatric or AOD Problems: His daughter has depression and anxiety but he is not sure if anyone else in the family has had any issues with mental health because his family does not talk about these issues. He had a paternal uncle committed suicide with a gun when he was over 80 years old. No other suicides in the family. His paternal grandfather and paternal uncles have alcoholism. Ethnicity - Culture Do you identify yourself with any particular cultural, ethnic background, or community?: No - Sexuality Sexual Orientation: Heterosexual Mental Status - Memory Recent Memory: Good Remote Memory: Good - Concentration Concentration: Good - Eye Contact Eye Contact: Fair - Speech Speech: Articulate - Thought Process Thought Process: Ruminations Insight: Good Judgment: Fair - Appearance Appearance: Neat/clean - Mood Mood: Depressed - Affect Affect: Appropriate/calm Suicide Assessment - Suicidal Ideation Have you ever felt like hurting yourself?: Yes Were you using ETOH/drugs at the time?: No Suicidal Intentional Rating Scale (SIRS): No suicidal thoughts (past or present) - No history of suicidal ideations, but he endorses having passive thoughts that he would not care if he . Reports having less now than he was a month ago. He denies suicidal ideation, plan for suicide, or thoughts of self-harm ever Physician Notification: If Active suicidal thoughts/Will not contract for safety is checked, contact physician and document in the Physician Notification section below. Violent Behavior/Abuse History - Homicidal Ideation Do you have any homicidal thoughts? If so, explain:: No Is there a known potential victim? If yes, who:: No - Abuse Have you ever been abused?: No Types of Abuse: Witness - Due to client's line of work, he has witnessed many traumatic things including , accidents, and injuries. - Life Events Are there any other significant life events?: - Client's father three years ago, Hardships - client reports having a lot of regret about decisions he made in the past which has contributed to client's worsening mental health symptoms. - Safety Do you ever feel threatened in your home? If yes, describe:: No Adult Social History - Age 19 to Present Describe your current support system:: For primary support, client has his and several close friends from his old job. Substance Use - Substance Substance Use Type: Alcohol, Cocaine, Marijuana, Tobacco, Caffeine - Specific Drugs What specific drugs have you used?: Client chewed tobacco for 20 years but he quit this 13 years ago. Client never smoked cigarettes. No vaping. He used marijuana only about 15 times and has not used it since his teen years. He used cocaine twice in college only and none since. No other drug use ever. No rehab ever. He drinks alcohol about 2-3 drinks weekly lately. Has never been a heavy drinker or had a problem with alcohol. 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 Service - Service Have you ever been in the ?: No Legal History - Records Have you had any past legal charges?: No Do you have any current legal charges?: No Have you ever been incarcerated? If yes, describe:: No - Court Orders Have you had any past court orders for psychiatric treatment?: No Do you have a present court order for psychiatric treatment?: No Problem Checklist - Current Problem Areas Problem List: Nutritional/Eating pattern changes, Pain management, Depressed mood/sad, Bereavement, Anxiety, Anger/aggression, Sleep problems, Pertinent health issues - GERD, obstructive sleep apnea which he uses CPAP for.; He had COVID-19 in August 2020 but had no respiratory symptoms and was not hospitalized and has no sequela. History of kidney stones in the past. He had back surgery for an L4 disc issue in the past and had left shoulder surgery., Additional psychosocial stressors Discharge Planning Needs - Anticipated Follow-Up Mental Health Center (Name/Phone Number):: Private Therapist/Psychiatrist:: Sofya Holliday- [facility] Diagnoses - Diagnoses Diagnosis #1:: Major depressive disorder, recurrent, severe without psychosis F 33.2 Diagnosis #2:: Generalized anxiety disorder Interpretive Summary - Interpretive Summary Interpretive Summary: Client is a 55-year-old male who has been for 12 years to his second and currently lives with his , 23-year-old daughter, 7-year-old step daughter, and 21-year-old stepson. Client?s is 43 years old and she is supportive and is a campus police officer. Client was referred to the [facility] behavioral health IOP program by his counselor and his primary care doctor for worsening symptoms of depression and panic attacks which have resulted in him being increasingly unable to function in the past few months. 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 Client feels his symptoms of depression started in March 2021 which was the third-year anniversary of his father's . He denies any other recent stressors. Client endorses having regret about past decisions and actions which results in guilt and panic attacks. His panic attacks were severe and frequent however they have improved since he was placed on Zoloft one month ago and his most recent panic attack was 3 weeks ago. He was feeling hopeless but he said he is much less hopeless now. He does endorse feeling guilty still but no wort hlessness. He is depressed but less depressed than he was a month ago before starting Zoloft. He still has decreased motivation and has been isolating himself. He is still not enjoying too many things. He used to be a runner and run every day in the past and even do marathons. He used to exercise daily but the most recent time he exercised was 3 weeks ago. Client?s appetite was a little decreased but he feels it is okay now and he has lost a lot of weight up to 49 pounds but he says that the weight loss was intentional over the past year. He feels his weight is stable now and he is not losing. His sleep was decreased but is now up to set 6 or 7 hours a night since starting Zoloft one month ago. Energy level is low concentration is better now but still not normal. He endorses having passive thoughts that he would not care if he but less now than he was a month ago. He denies suicidal ideation, plan for suicide, thoughts of self-harm, homicidal ideation, hallucinations, delusions or symptoms of matthew ever. He is a worrier by nature and is and he has been ruminating negatively. He denies a history of OCD, eating disorder, trauma or PTSD. Client does avoid looking at any pictures of his family from the past because this triggers feelings of grief, loss and guilt still. 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 Client has a family history of anxiety, depression, and alcoholism. Client denies any issues with alcohol or substance abuse ever. Client also had a paternal uncle by suicide. Client reports his family never talked about mental health much. Treatment Plan Recommendations - Recommendations Guidelines: Special needs identified to be included in the development of an individualized treatment plan regarding past psychiatric history and treatment, developmental events, family relationships/events/culture, past and/or current educational, occupational, social, and residential experience, and legal status. Recommendations:: client will start the IOP program at [facility] in behavioral health as the structure, support, education, and group therapy will hopefully prevent worsening of client?s symptoms which might require hospitalization. He felt safe during the interview and if it anytime he does not feel safe he will let us know or go to the emergency room. The risk, options, possible complications and side effects of medications were discussed between client and [facility] psychiatrist. [facility] psychiatrist encouraged client to exercise daily since he used to be a runner and this might enable him to require less medication for his depression and anxiety. Client will continue to follow- up with his outpatient mental health and medical providers.
== END 2021-08-09 23:59 | disposition home or self-care (01) ==
LOC: BHIOP 09:11
PROVIDERS: Referring Provider Psychiatry & Neurology Psychiatry; Visit Provider Psychiatry & Neurology Psychiatry
DX: F33.2 Major depressive disorder, recurrent severe without psychotic features (principal); F41.8 Other specified anxiety disorders; G47.33 Obstructive sleep apnea (adult) (pediatric); Z79.899 Other long term (current) drug therapy
CPT/HCPCS: S9480; 90832; 90853

== ENCOUNTER 2021-08-10 07:32 | Outpatient (RCR) | payer OTHER, SELFPAY ==
[2021-08-10 00:50] VITALS: BP 140/92; PULSE 57
--- NOTE | 2021-08-11 09:03 | BH.SGPN.GN ---
Behaviors/Verbalizations/Mental Status: []Eye contact is good. Motor activity is appropriate. Appearance is casual. Speech is appropriate. Mood is euthymic. Affect is congruent. Thoughts are linear and logical. No evidence of psychosis. Reviewed daily symptom tracker sheet with no reports of suicidal ideations, plan, or intent. Client Response/Progress/Benefit: []Client was engaged throughout group session, sharing and listening attentively to others. Client reported his emotion of the day as ?optimistic?, stating that his family is recovering from their illness. Expressed breaking down tasks as a way to prevent becoming overwhelmed taking care of his family. Client discussed feeling worried about ruminating while driving by himself to [place] tomorrow. Client stated that he has taken steps to prevent this by downloading an audiobook. Client appeared to benefit from group discussion of healthy ways to combat rumination. Will continue IOP treatment to increase application of self care and increase healthy coping skills to improve daily functioning. Narrative Note: []
--- NOTE | 2021-08-11 10:10 | BH.SGPN.GN ---
Behaviors/Verbalizations/Mental Status: []Eye contact is good. Motor activity is appropriate. Appearance is casual. Speech is Appropriate. Mood is euthymic. Affect is constricted. Thoughts are linear and logical. No evidence of psychosis. Client Response/Progress/Benefit: []Engaged in experiential activity with peers. Attentive during psychoeducation on what is social support, the benefits of social support, and the things that keep us from utilizing social support for mental wellness. Attentive during interaction discussion and feedback from peers on these subjects AEB head nodding and note-taking. Able to see connection between experiential activity and group topic. Pt identified barriers to social support for his include: lack of trust, fear, peer pressure, and lack of communication. Benefited from increased awareness of the benefits of social support in maintain mental health. Will continue in IOP to stabilize moods, increase healthy coping and prevent decompensation. Narrative Note: []
--- NOTE | 2021-08-11 11:10 | BH.SGPN.GN ---
Behaviors/Verbalizations/Mental Status: []Client alert and oriented, casually dressed and groomed. Eye contact good. Motor activity appropriate. Speech within normal limits. Affect congruent, mood euthymic. Thoughts linear, logical, no signs of hallucinations or delusions. Client Response/Progress/Benefit: []Client was an active participant throughout AEB contributing to discussion, providing personal examples, and taking notes. Client did well to relate group topic and activity back to own experiences. Client provided input during discussion on the types of support our supports can provide. Client reports wanting to work on increasing social supports, noting this will give client a schedule, possibly help others, and reduce isolation. Client plans to improve this support area by scheduling a family activity, asking for help more often, and looking into volunteering. Client seemed to benefit from identifying the type of support and how this support will aid in promoting overall mental wellness. Will continue IOP tx to prevent decompensation, reduce negative self-talk, and improve daily functioning. Narrative Note: []
--- NOTE | 2021-08-17 10:00 | BH.SGPN.GN ---
Behaviors/Verbalizations/Mental Status: [] Eye contact is good. Motor activity is appropriate. Appearance is casual. Speech is Appropriate. Mood is dysthymic. Affect is constricted. Thoughts are linear and logical. No evidence of psychosis. Client Response/Progress/Benefit: []Pt was an active participant in group discussion and activity. Attentive during psychoeducation. Pt participated in group discussion in which group defined fixed mindset and provided insight on how a fixed mindset could impact mental health and result in. Engaged in group discussion about growth mindset, helping group identify impact grown mindset can have on mental health. Pt shared his fixed mindset thoughts include: I should've done more today and If it's not perfect then it's wrong. Pt stated if he thinks he can't do something then he likely won't even try. Benefited from increased awareness on the role of fixed mindset on mental health. Will continue in IOP to decrease impact of guilt on past choices, increase focus on what's in his control, continue challenging negative thoughts and prevent decompensation.
--- NOTE | 2021-08-17 11:05 | BH.SGPN.GN ---
Behaviors/Verbalizations/Mental Status: []Client alert and oriented, neatly dressed and groomed. Eye contact good. Motor activity appropriate. Speech within normal limits. Affect constricted, mood dysthymic and anxious. Thoughts linear, logical, no signs of hallucinations or delusions. Client Response/Progress/Benefit: []Client engaged during activity and discussion. Client worked in small group to apply skills learned to reframe own personal fixed thoughts. Appeared to benefit from suggestions provided by peers and from providing ideas to peers in return. Client identified fixed thoughts including ?I should have done more today.? client practiced reframing these fixed thoughts using growth-mindset strategies and identifying the distortions. Reframed fixed thoughts and shared ?I?m going to emphasize what was accomplished and be more realistic.? Benefitted from discussing benefits of growth mindset and brainstorming strategies for prompting growth-mindset. Will continue IOP tx to reduce guilt and negative thinking, improve daily functioning, and reduce avoidance. Narrative Note: []
--- NOTE | 2021-08-17 15:14 | BH.MDN_ITS ---
Multi-Disciplinary Note - Note 30-min Individual Time Started:: 09:25 Date: 08/17/21 Purpose of session/treatment goals addressed:: To work on goal #1 of client's treatment plan. Eye Contact:: Good Motor Activity:: Appropriate Appearance:: Casual Speech:: Soft Mood:: Anxious, Dysthymic Affect:: Constricted Thoughts:: Linear, Logical, No evidence of hallucinations/delusions noted Staff Interventions:: psychoeducation on: - maintenance cycles, CBT techniques, strengths perspective, taught coping skills, other - gave homework to review distortions and complete personal maintenance cycle Client Response:: Client responded well to session, open to meeting with therapist. Client shared he drove to [place] by himself over the weekend which client was anxious about, but he shared it went better than expected. Client was worried the drive would trigger ruminations, but he was able to listen to audiobooks to stay distracted. Client went to [place] because his [id number] and client acknowledged this has triggered grief from losing his father. Client stated it has been helpful to provide emotional support for his . Client receptive to learning about maintenance cycles and reviewed the depressive maintenance cycle. Client connected with the emotions in the maintenance cycle (guilt, regret, and sadness) and how these emotions lead to isolation and negative thinking. Client shared he has a lot of guilt, [place], and regret about his reactions to anger in the past and how this impacted his family. Client also stated that he struggles to allow himself to be happy and shared that he often has superstitious and anxious thoughts that reinforce this. Client receptive to gentle thought challenging and willing to review the distortions for homework. Client will also work on completing his own maintenance cycle for depression. Risks/Concerns:: Client denies any suicidal ideations, plan, or intent as of 08/17/21. Denies HI. Progress Toward Goals/Plan:: Client making progress towards tx goals AEB his self-report of improved ability to cope with stressors. Client's current stressors include the loss of his [id number], recent drive to [place], and ongoing mental health symptoms. Doing well with utilizing opposite action and calming skills. Continues to endorse guilt, ruminations, regret, negative thinking patterns, and anxiety. Client will continue IOP tx to reduce ruminations, increase self-awareness to mental health symptoms, and improve overall functioning. Time Stopped:: 09:55
--- NOTE | 2021-08-18 09:02 | BH.SGPN.GN ---
Behaviors/Verbalizations/Mental Status: []Client alert and oriented, neatly dressed and groomed. Eye contact good. Motor activity appropriate. Speech within normal limits. Affect congruent, mood euthymic. Thoughts linear, logical, no signs of hallucinations or delusions. Reviewed client?s symptom tracker, no risk for suicidal ideation, plan, or intent as of 08/18/21 Client Response/Progress/Benefit: []Client responded well to session, attentive and providing supportive feedback. Client reports feeling even-keeled this morning. Client shared he has had a busy past couple of days, but he feels he has coped with the stress better than he would have in the past. Client stated he has been frustrated with how his 's uncle has been reacting to the loss of client's [id number]. Client shared he helped his set healthy boundaries and was able to prevent himself from having a further spiral. Appeared to benefit from reflecting on his improved ability to manage anger and stress. Will continue IOP tx to further improve daily functioning, combat distortions reinforcing guilt, and increase mood stability. Narrative Note: []
--- NOTE | 2021-08-18 10:10 | BH.SGPN.GN ---
Behaviors/Verbalizations/Mental Status: [] Eye contact is good. Motor activity is appropriate. Appearance is casual. Speech is Appropriate. Mood is euthymic. Affect is full. Thoughts are linear and logical. No evidence of psychosis Client Response/Progress/Benefit: [] Pt was an active participant and engaged during group discussion. Attentive and engaged during psychoeducation on types of boundaries (physical, emotional, sexual, material, and time). Participated in interactive discussion on defining the role of a boundary in mental health. Pt along with peers were able to identify the benefit of setting boundaries which included; personal growth, more control over one's time and life, can improve relationships, can improve mental health, helps us respect ourselves more, and helps us get more accomplished. Pt also provided feedback along with peers on the barriers or things that keep us from from setting boundaries such as; wanting to avoid conflict, fear of missing out, fear of someone not liking us, fear of other's getting angry, belief that one will not stick with the boundary set, and feeling selfish. Benefited from increased awareness of the role of boundaries in mental health. Will continue in IOP to stabilize mood, improve functioning, and increase health coping skills. Narrative Note: []
--- NOTE | 2021-08-18 12:10 | PCM.BH.PN ---
Progress Note Progress Note: In the history of Present Illness/Interim History: [] The patient is a 55-year-old male who is seen in follow-up at the [facility] behavioral health IOP program. He was last seen 2 weeks ago. The patient states that he feels he is doing well in the IOP program and is learning valuable skills to help deal with his mental health issues. He is overall feeling better and is proud that he was able to do a few things last week that he thought would be very stressful for him but he was able to accomplish these things and do them without difficulty. He has not had any panic attacks since I saw him last. His motivation is better and he is isolating himself less. He has not started exercising yet because the weather has been so bad but he is looking forward and planning to start exercising soon. He denies any passive thoughts of . He denies any suicidal ideation, homicidal ideation, hallucinations or delusions. He has been doing less negative rumination. He feels minimal side effects from his Zoloft now. Current Psychiatric Medications: [] Zoloft 100 mg p.o. daily (dose increased 1 month ago); Xanax not using now. Mental Status Examination: [] The patient is a 55-year-old male who is seen wearing a mask and is casually dressed and groomed with good hygiene. He has no psychomotor agitation or retardation. Eye contact is good and speech is normal rate and rhythm and fluent with no pressure. Mood is depressed. Affect is full and normal. Thought process is goal-directed and organized. Thought content: There is no evidence of passive thoughts of , suicidal ideation, homicidal ideation, plan for suicide, hallucinations or delusions. Judgment is intact. Insight is good. Impulsivity is low. Diagnoses: [] 1. Major depressive disorder, recurrent, severe without psychosis 2. Generalized anxiety disorder 3. Obstructive sleep apnea 4. Primary support and loss issues Plan: [] The patient will continue the IOP program at [facility] as the structure, support, education and group therapy will hopefully prevent worsening of the patient's symptoms. He felt safe during the interview and that if at anytime he does not feel safe he will let us know or go to the emergency room. The risk, options, possible complications and side effects of the medications were again discussed with the patient and he understands and accepts these. He feels the side effects from the Zoloft has lessened and feels the medication has helped him tremendously. He is encouraged to exercise daily and to start this as soon as weather permits. No medication changes were made today. The patient will continue to follow-up with his outpatient providers and I will see the patient in follow-up while he is in the IOP program.
--- NOTE | 2021-08-20 09:05 | BH.SGPN.GN ---
Behaviors/Verbalizations/Mental Status: [] Eye contact is good. Motor activity is appropriate. Appearance is casual. Speech is Appropriate. Mood is euthymic. Affect is full. Thoughts are linear and logical. No evidence of psychosis. Reviewed daily check in sheet and no reports of suicidal ideations or intent. Client Response/Progress/Benefit: [] Pt was an active participant in group discussion. Attentive. Provided appropriate feedback. Emotion for today is happy. I feel good. Mental farshad wins include completing opposite action while interacting with support. Developing new internal and external skills to manage ruminations and negative automatic thoughts. Started a type of journal where he will write down things he wants out of the day each day. Shared how this is beneficial to his mental health. Progress noted. Benefited from group support, encouragement, and feedback. Will continue in IOP to maintain gains, prevent decompensation, and increase healthy coping skills.
--- NOTE | 2021-08-20 10:06 | BH.SGPN.GN ---
Behaviors/Verbalizations/Mental Status: []Client alert and oriented, neatly dressed and groomed. Eye contact good. Motor activity appropriate. Speech within normal limits. Affect congruent, mood euthymic. Thoughts linear, logical, no signs of hallucinations or delusions Client Response/Progress/Benefit: []Client engaged during session AEB client contributing thoughts throughout discussion and completing worksheet. Connected with discussion on crisis and how coping with external crises by using unhealthy coping skills could result in a personal crisis. Group reflected on the importance of having awareness of personal warning signs to prevent reaching crisis point. Group identified potential warning signs for crisis and client completed the personal warning signs worksheet. Client identified personal crisis warning signs to include: increased anger, negative thinking (mostly jumping to conclusions), and hyper-focusing on ?anything but the issue.? Client benefited by increasing awareness of what leads to crisis and personal warning signs. Client will continue IOP tx to reduce distorted thinking patterns, improve daily functioning, an increase healthy coping skills. Narrative Note: []
--- NOTE | 2021-08-20 11:07 | BH.SGPN.GN ---
Behaviors/Verbalizations/Mental Status: []Client alert and oriented, casually dressed and groomed. Eye contact good. Motor activity appropriate. Speech within normal limits. Affect congruent, mood anxious, euthymic. Thoughts linear, logical, no signs of hallucinations or delusions. Client Response/Progress/Benefit: []Client responded well to session as evidenced by client listening attentively to others and providing strategies during small group discussion. Reflected on the importance of proactively identifying and addressing personal warning signs to prevent crisis escalation. Client identified warning signs for crisis and gained further awareness of earliest warning signs. Client created a crisis action plan to help client better manage warning signs for crisis. Client?s action plan for anger and negative thinking included: leave the situation if possible. Deep breathing, exercise, positive or calming music, positive affirmations, grounding skills, and active listening skills. Client appeared to benefit from creating a crisis action plan and increasing self-awareness. Progress noted in improved insight and reported increased skill application. Client to continue IOP tx to maintain mood stability, continue to promote healthy coping, and reduce negative thinking which impacts mood. Narrative Note: []
--- NOTE | 2021-08-23 09:00 | BH.SGPN.GN ---
Behaviors/Verbalizations/Mental Status: []Client alert and oriented, casually dressed and groomed. Eye contact good. Motor activity appropriate. Speech within normal limits. Affect congruent, mood euthymic. Thoughts linear, logical, no signs of hallucinations or delusions. Reviewed client?s symptom tracker, no risk for suicidal ideation, plan, or intent as of 08/23/21 Client Response/Progress/Benefit: []Client responded well to session, attentive and providing supportive feedback. Client reports feeling amazed this morning as client joked that his drove home and parked the car in the garage without gas. Client shared he was able to joke about this when it happened today and this is progress as in the past client would have become irritable. Client stated this stressor would have also been an immediate downer on his day in the past. Client reports increased motivation at home, but he continues to struggle with negative thinking and guilt. Appeared to benefit from reflecting on his growth. Will continue IOP tx to reduce negative self-talk and guilt while improving daily functioning. Narrative Note: []
--- NOTE | 2021-08-23 10:08 | BH.SGPN.GN ---
Behaviors/Verbalizations/Mental Status: []Client alert and oriented, casually dressed and groomed. Eye contact good. Motor activity appropriate. Speech within normal limits. Affect congruent, mood euthymic. Thoughts linear, logical, no signs of hallucinations or delusions. Client Response/Progress/Benefit: []Client responded well to session AEB sharing and listening attentively to others. Client participated in experiential activity illustrating resilience, providing problem solving strategies and supportive feedback to others. Client participated in group processing, providing insight into the symbolic nature of the activity. Client was a passive participant in group discussion of where resilience comes from, its benefits, and the barriers to building resilience, listening attentively and nodding throughout. Identified a barrier to resilience as fearing that building resilience will be worse than their current coping strategy. Client listened attentively throughout group discussion of the benefits of building resilience. Clinician provided psychoeducation on ten strategies to increase resilience. Appeared to benefit from increased knowledge of strategies to build resilience. Will continue IOP treatment to continue decreasing rumination and continue increasing healthy coping skills to improve daily functioning. Narrative Note: []
--- NOTE | 2021-08-23 11:07 | BH.SGPN.GN ---
Client alert and oriented, casually dressed and groomed. Eye contact good. Motor activity appropriate. Speech within normal limits. Affect congruent, mood euthymic and anxious. Thoughts linear, logical, no signs of hallucinations or delusions Behaviors/Verbalizations/Mental Status: []Client responded well to session AEB contributing to discussion and completing the resilience worksheet provided. Client participated in the discussion of how each resiliency component can help increase personal resiliency. Worked cooperatively with group to identify strategies to enhance each of the components discussed. Client identifying doing well with the resilience components of: Move towards your goals and keep things in perspective. Went on to reflect wanting to improve in the personal resilience component of ?take care of yourself?. Client stated he wants to work on this by taking time to do things he enjoys and not feeling guilty for it. Client seemed to benefit from discussing strategies for improving personal resilience. Will continue IOP tx to prevent decompensation, continue to promote application of healthy coping skills, and maintain mood stability. Client Response/Progress/Benefit: [] Narrative Note: []
--- NOTE | 2021-08-25 10:10 | BH.SGPN.GN ---
Behaviors/Verbalizations/Mental Status: []Client alert and oriented, casually dressed and groomed. Eye contact good. Motor activity appropriate. Speech within normal limits. Affect congruent, mood euthymic. Thoughts linear, logical, no signs of hallucinations or delusions. Client Response/Progress/Benefit: []Client responded well to session AEB sharing and listening attentively to others. Client was engaged throughout group discussion defining taking action, taking notes and nodding. Group identified barriers to taking action, with client contributing limited time and lack of consistency as examples. 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 Appeared to benefit from increased self-awareness and knowledge regarding examples and barriers to taking action. Will continue IOP treatment to continue decreasing rumination and increasing anxiety management skills to improve overall functioning. Narrative Note: []
--- NOTE | 2021-08-25 10:37 | BH.MDN_ITS ---
Multi-Disciplinary Note - Note 45-min Individual Time Started:: 09:20 Date: 08/25/21 Purpose of session/treatment goals addressed:: To work on goal #1 of client's tx plan. Another goal was to review progress in IOP. Eye Contact:: Good Motor Activity:: Appropriate Appearance:: Casual Speech:: Soft Mood:: Other - guilt and embarrassed thinking about the past. Affect:: Congruent Thoughts:: Linear, Logical, No evidence of hallucinations/delusions noted Staff Interventions:: thought challenging - using thought logs, CBT techniques, strengths perspective, taught coping skills - self-compassion and cognitive restructuring techniques., other - reviewed homework and gave homework. Client Response:: Client responded well to session, open to meeting with therapist. Reviewed homework from last session which was to complete a main tenance cycle for depression. Client identified his triggers, emotions, and behaviors that reinforce depression. Client also gained insight to his distorted thought patterns that reinforce depression and guilt. Client connected most with all or nothing thinking, labeling, jumping to conclusions, and shoulds. Client stated he has a lot of guilt, rumination, and regret about his past. Client shared he looks back on the way he used to act, view mental health, and cope and it feels embarrassing. Client stated he somewhat feels like he is getting what he deserves because he did not take mental health seriously in the past. Client responded well to thought challenging and self-compassion. Client acknowledged that his past choices and beliefs were heavily influenced by the culture at his employment and certain traits like aggression being rewarded. Client identified three thoughts he would like to challenge and practiced one during session. Client's thought was I have no value which is a thought client has had since retiring, and this makes client feel sad and hopeless. Did well to label these distortions and reframed the negative thought. Client looked at the evidence against this thought and shared the no one has actually told him this. Client also acknowledged that since being retired he gets to be helpful and valuable in other ways. Client receptive to challenging the other thoughts for homework. Risks/Concerns:: Client denies any suicidal ideations, plan, or intent as of 08/25/21. Denies any HI. Future oriented. Progress Toward Goals/Plan:: Client continues to make progress towards his tx goals AEB self-report of improving motivation, mood, and functioning. Client completed homework from previous session and he is active in group. Client stated he is looking forward to old hobbies again and has been feeling more stable. However, client continues to endorse significant guilt, regret, and ruminations about his past. Responded well to cognitive restructuring and will complete the rest of his thought log for homework. Time Stopped:: 10:10
--- NOTE | 2021-08-25 11:15 | BH.SGPN.GN ---
Behaviors/Verbalizations/Mental Status: []Client alert and oriented, casually dressed and groomed. Eye contact good. Motor activity appropriate. Speech within normal limits. Affect congruent, mood euthymic. Thoughts linear, logical, no signs of hallucinations or delusions. Client Response/Progress/Benefit: []Client responded well to session, taking notes and participating in worksheet discussion. Client identified he wants to take action on decreasing impact guilt about his past choices has on his mental health. Client stated his goal is to interact with his , kids, mom through phone or in person at least once a week. Identified adding goal to his routine, writing what he wants to talk about and being more proactive as strategies that can help him follow through with the goal. Appeared to benefit from identifying a small goal to benefit mental health. Client to continue IOP to continue to focus on what's in his control, challenge distorted thoughts, improve confidence and prevent decompensation.
--- NOTE | 2021-08-27 09:10 | BH.SGPN.GN ---
Behaviors/Verbalizations/Mental Status: [] Eye contact is good. Motor activity is appropriate. Appearance is casual. Speech is Appropriate. Mood is depressed. Affect is euthymic. Thoughts are linear and logical. No evidence of psychosis. Reviewed daily check in sheet and no reports of suicidal ideations or intent. Client Response/Progress/Benefit: [] Pt was an active participant in group discussion on managing triggers. Attentive. Provided appropriate feedback. Emotion for today is venessa sad. Mental health wins include starting certain projects around the house. I've been putting these off mainly due to mental health. Reports increased motivation and confidence that if a challenge or stressor occurs he will be able to manage appropriately. He talked about catastrophizing impacting his motivation to take on certain tasks in the past. Shared that he is sad due to some family dynamics and changes, however insight that this is appropriate and expected. Progress noted. Benefited from group support, encouragement, and feedback. Will continue in IOP to prevent decompensation, increase healthy coping, and improve functioning. Narrative Note: []
--- NOTE | 2021-08-27 10:15 | BH.SGPN.GN ---
Behaviors/Verbalizations/Mental Status: []Client alert and oriented, casually dressed and groomed. Eye contact good. Motor activity appropriate. Speech within normal limits. Affect constricted, mood euthymic. Thoughts linear, logical, no signs of hallucinations or delusions. Client Response/Progress/Benefit: []Pt was an active participant in group discussion and experiential activity. Attentive during psychoeducation. Group had an interactive discussion on the benefits of emotional regulation in which pt provided insight. Group identified several benefits to emotional regulation which included; less consequences, more stable relationships, improved communication, and better ability to manage stress. Group also was able to identify how emotions can impact our communication leading to; difficulty articulating our thoughts, shutting down, not being an active listener, mind-reading, and getting defensive. Pt participated in experiential activity and reported it was a learning experience that helped challenge his perspective. Benefited from increased awareness into how emotions can impact one's ability to effectively communicate. Will continue IOP tx to promote mood stability, reduce distorted thought patterns, and improve overall functioning. Narrative Note: []
--- NOTE | 2021-08-27 11:15 | BH.SGPN.GN ---
Behaviors/Verbalizations/Mental Status: []Client alert and oriented, neatly dressed and groomed. Eye contact good. Motor activity appropriate. Speech within normal limits. Affect constricted, mood dysthymic. Thoughts linear, logical, no signs of hallucinations or delusions. Client Response/Progress/Benefit: []Pt engaged in session AEB client listening attentively to peers and providing input. Attentive during psychoeducation on 4 zones of regulation. Pt able to identify feelings and behaviors for each zone. Pt identified coping skills one can use to support self in each zone. Pt stated belief that he is in the blue zone today as pt is sad that it is his daughter?s last ice-skating competition this weekend. This triggers ruminations about the past and anxious about the changes in the future. Pt stated he wants to work on reframing his thinking and connecting with his daughter to help him get out of the blue zone. Benefited from increased education on zones of regulation or stages of alertness for emotions and healthy coping skills to use for each zone. Pt will continue IOP tx to combat distortions, improve daily functioning, and increase self-awareness. Narrative Note: []
--- NOTE | 2021-08-30 08:52 | BH.TPR ---
Treatment Plan Review Date of Admission:: 08/02/21 Date of Treatment Plan Review:: 08/30/21 Admitting Diagnoses:: Major depressive disorder, recurrent, severe without psychosis F 33.2; Generalized anxiety disorder Current Diagnoses:: Major depressive disorder, recurrent, severe without psychosis F 33.2; Generalized anxiety disorder Patient's Response to Treatment:: Pt has responded well to treatment AEB pt consistently attending IOP sessions and his reduction of DSM-5 scores by 57% since admission. Pt contributes well during individual sessions and actively contributes during group sessions. Pt applies coping skills outside of IOP and reports overall his mood is improved and he is doing better at regulating his emotions under stress. Status of Current Problems and Symptoms: Pt's symptoms of depression and anxiety are resolving, but there are still issues ongoing. Pt has been learning about cognitive distortions and this has increased pt's insight to the guilt, regret, and embarrassment pt has about past choices and interactions. Pt also continues to struggle with challenging negative self-talk, and ruminations. Pt shared feeling anxious that his improved mood will not last long and he fears falling back into old habits. Problem #1 Problem Name:: Depressive symptoms, guilt, anhedonia, and passive wishes Status of Goals:: Objective1- complete with ongoing work encouraged. Pt?s DSM-5 scores for depression decreased by 50% since admission. Pt reports using opposite action and his communication with supports has improved. Objective 2- in progress. Pt is learning about the cognitive distortions and how to reframe negative self-talk. Pt continues to endorse significant guilt, regret, and ruminations about his past actions as a father, , and employee. Team Recommendations:: Treatment team recommends pt continue working on combatting distortions that reinforce guilt, regret, and depression. Also encourage pt to continue working on combatting internal stigma and increasing communication with supports. Problem #2 Problem Name:: Anxiety, ruminations, and avoidance Status of Goals:: Objective 1- complete with ongoing work encouraged. Pt?s DMS-5 scores for anxiety have decreased by 75% since admission. Pt reports using healthy distractions, self-talk, and calming skills to manage stress in the moment and prevent lashing out. Objective 2- in progress. Pt is working on identifying and combatting distorted thought patterns that reinforce anxiety. Pt also working on addressing stressors rather than avoiding. Team Recommendations:: Treatment team recommends that pt continue working on implementing healthy calming skills on a consistent basis to promote mood stability. It is also recommended that pt continue working on reducing ruminations.
--- NOTE | 2021-08-31 09:00 | BH.SGPN.GN ---
Behaviors/Verbalizations/Mental Status: []Client alert and oriented, casually dressed and groomed. Eye contact good. Motor activity appropriate. Speech within normal limits. Affect constricted, mood euthymic. Thoughts linear, logical, no signs of hallucinations or delusions. Reviewed client?s symptom tracker, no risk for suicidal ideation, plan, or intent as of 08/31/21 client Response/Progress/Benefit: C[]Client responded well to session, attentive and listening to peers. Client reports feeling mellow this morning and shared that he had another busy weekend, but it was full of good stressors. client went to [place] with his family to watch his youngest child in her last ice-skating competition. Client initially felt sad about her career coming to a close, but he shared talking to her and seeing that she was ready to move on helped client's mood. Client stated the experience taught him that I can't predict the future or read minds which helped combat distortions. Appeared to benefit from reflecting on thought challenging. Progress noted in self-report of improved mood and functioning, but he continues to struggle with negative thinking patterns. Will continue IOP tx to promote mood stability, reduce distorted thought patterns, and further improve daily functioning. Narrative Note: []
--- NOTE | 2021-08-31 10:08 | BH.SGPN.GN ---
Behaviors/Verbalizations/Mental Status: []Client alert and oriented, casually dressed and groomed. Eye contact good. Motor activity appropriate. Speech within normal limits, quiet. Affect congruent, mood euthymic. Thoughts linear, logical, no signs of hallucinations or delusions. Client Response/Progress/Benefit: [] Client responded well to session AEB client taking notes, listening attentively to others, and providing input throughout. Group discussed the origin of coping skills, examples of unhealthy coping, and why we utilize them. Client identified minimization and guilt as personal barriers to using healthy coping skills. Participated in experiential activity, providing possible solutions and strategies to his peers. Client was attentive throughout group processing, shared that having a stable foundation is [place] to healthy coping. Client took notes and provided input throughout discussion of the importance of external supports and a strong variety of internal coping skills, sharing that variety has been [place] for his continued progress. Appeared to benefit from increased knowledge of internal coping skills and identifying personal barriers to consistent skill application. Progress noted in client report of reduced depression and increased communication with supports. Client will continue IOP treatment to promote consistent application of skills and communication with supports, as well as prevent decompensation. Narrative Note: []
--- NOTE | 2021-08-31 11:10 | BH.SGPN.GN ---
Behaviors/Verbalizations/Mental Status: []Client alert and oriented, casually dressed and groomed. Eye contact good. Motor activity appropriate. Speech within normal limits. Affect congruent, mood euthymic. Thoughts linear, logical, no signs of hallucinations or delusions. Client Response/Progress/Benefit: []Client responded well to session, taking notes and nodding frequently. Group discussed the different categories of coping skills which included distraction, emotional release, grounding, self-love, and thought challenging. Client's coping skill menu included: art, punching bag, meditation, exercise, and thought log. Appeared to benefit from increasing repertoire of healthy coping skills. Will continue tx to prevent decompensation, continue use of healthy coping skills, continuing to open up to supports, and decrease guilt about past mistakes.
--- NOTE | 2021-09-02 09:00 | BH.SGPN.GN ---
Behaviors/Verbalizations/Mental Status: Eye contact is good. Motor activity is appropriate. Appearance is casual. Speech is appropriate. Mood is sad. Affect is congruent. Thoughts are linear and logical. No evidence of psychosis. Reviewed daily symptom tracker sheet with no reports of suicidal ideations, plan, or intent.[] Client Response/Progress/Benefit: [] Client was engaged AEB pt openly sharing thoughts and feelings and appeared attentive to others. Client reported he found out last week that one of his friends . Client stated then his brother texted him yesterday to let him know one of their friends from high school is sick and going on hospice. Client reported in the past he wouldn't have talked about his feelings about the losses, which would've resulted in him being more irritable with others. Client reported yesterday he talked with his about how he was feeling with the news. Client stated he can see benefits to processing the grief. Client seemed to benefit from support from peers. Will continue IOP treatment to maintain gains, continue challenging distorted thoughts and prevent decompensation.
--- NOTE | 2021-09-02 10:10 | BH.SGPN.GN ---
Behaviors/Verbalizations/Mental Status: [] Eye contact is good. Motor activity is appropriate. Appearance is casual. Speech is Appropriate. Mood is anxious. Affect is congruent. Thoughts are linear and logical. No evidence of psychosis Client Response/Progress/Benefit: [] Pt was an active participant in group discussion. Engaged in activity. Attentive during psychoeducation on the 4 stages of change. Pt participated and shared insight during interactive discussion regarding the obstacles to making changes which included; anxiety, fear of the unknown, what if it doesn't go well?, makes us leave comfort zone, expects things to go bad, FOF, past experiences with change were negative, and shame. Pt participated in activity which led to discussion on emotions commonly associated with change ( confused, cautious, guilty, overwhelmed, happy, anxious, confident, hopeful, and frightened. Benefited from increased insight and awareness of obstacles to change, common emotions associated with change, and the stages of change. Will continue in IOP to maintain gains and prevent decompensation. Narrative Note: []
--- NOTE | 2021-09-02 11:15 | BH.SGPN.GN ---
Behaviors/Verbalizations/Mental Status: []Client alert and oriented, neatly dressed and groomed. Eye contact good. Motor activity appropriate. Speech within normal limits. Affect constricted, mood calm. Thoughts linear, logical, no signs of hallucinations or delusions. Client Response/Progress/Benefit: []Client responded well to session, attentive. Did well to process activity and work with group to relate the strategies used to overcome barriers in the activity to managing change in own life. Client identified a change they would like to make as challenging negative self-talk and doubt thoughts. Client reports barriers to change as doubt that it is possible to change, still developing skills, and feeling skills are not needed when he feels well. Client set a goal of practicing more journaling and getting back on an exercise schedule. Appeared to benefit from identifying a small goal to work towards. Client will continue IOP tx to reduce negative thinking patterns, improve self-care, and promote mood stability. Narrative Note: []
--- NOTE | 2021-09-03 10:08 | BH.SGPN.GN ---
Behaviors/Verbalizations/Mental Status: []Client alert and oriented, casually dressed and groomed. Eye contact good. Motor activity appropriate. Speech within normal limits. Affect congruent, mood euthymic. Thoughts linear, logical, no signs of hallucinations or delusions. Client Response/Progress/Benefit: [] Client receptive to session, listening attentively to others and providing input. Actively listening and taking notes as the group brainstormed the positive and negative aspects of stress on physical and mental health, discussed stress has led him to shut down or miscommunicate with supports. Group worked together to define stress and provided input during discussion about eustress vs distress. Client identified personal stressors which included: family issues, work, physical health, and world event. Client reports belief that his stress jar is about 60% full which he feels is an improvement compared to admission to IOP tx. Seemed to benefit from increased awareness of current stressors and impact of too much stress on the mind and body. Will continue IOP tx to prevent decompensation, improve consistent communication with supports, and promote consistent use of healthy coping skills. Narrative Note: []
--- NOTE | 2021-09-03 11:10 | BH.SGPN.GN ---
Behaviors/Verbalizations/Mental Status: []Client alert and oriented, casually dressed and groomed. Eye contact good. Motor activity appropriate. Speech within normal limits. Affect congruent, mood anxious and euthymic. Thoughts linear, logical, no signs of hallucinations or delusions. Client Response/Progress/Benefit: []Client engaged in session AEB listening attentively, working collaboratively with others, and providing input throughout. Client was an active participant in challenge activity and did well to use communication skills to help group with problem solving throughout challenge activity. Client remained attentive during discussion about the 4 A's of managing stress and expressed connecting with the various benefits of each. Shared he would like to work on using the skill of alter to address current stressor of work. Discussed that he could alter his responsibilities by deciding to cutback in one area after careful analysis. Client seemed to benefit from increased awareness of the impact of stress on mental health and increasing repertoire of stress management strategies. Progress noted in pt overall improved sx management and reports of increased communication with supports. Will continue IOP tx to continue to promote healthy communication with supports, further improve coping repertoire, as well as prevent decompensation. Narrative Note: []
--- NOTE | 2021-09-03 11:30 | BH.MDN_ITS ---
Multi-Disciplinary Note - Note 45-min Individual Time Started:: 09:30 Date: 09/03/21 Purpose of session/treatment goals addressed:: To review progress in IOP, establish goals for the week to support treatment gains, and review homework from previous sessions. Eye Contact:: Good Motor Activity:: Appropriate Appearance:: Casual Speech:: Appropriate Mood:: Euthymic, Anxious Affect:: Congruent Thoughts:: Linear, Logical, No evidence of hallucinations/delusions noted Staff Interventions:: thought challenging, CBT techniques, mindfulness skills, discharge planning, strengths perspective, goal setting - set goal to schedule self-care time golfing., taught coping skills - discussed distress tolerance and how to build this skill. Client Response:: Pt responded well to session, open to meeting with therapist. Pt reports he has been functioning better at home and his mood has overall improved since starting IOP. Discussed progress on tx goals and plan of care. Pt agreeable to continue IOP tx for two more weeks and would like to do IOP aftercare as well. Pt completed his homework from previous session which was a thought log. Pt able to identify several distorted thought patterns that reinforce guilt, sadness, and anger. Also identified situations that trigger these thoughts and emotions. Pt able to challenge these distortions and reframe them. Also receptive to practicing building distress tolerance through sitting w ith the uncomfortable while driving. Pt admits to having a little bit of road rage and shared it is hard for him to be calm in the car. Receptive to homework of practicing grounding skills and allowing himself to drive slowly for a short period of time. Also reviewed self-care that pt has been avoiding such as scheduling time to exercise and engage in activities pt used to enjoy. Pt shared he wants to get back to exercising 2-3 times a week and wants to go golfing. Discussed indoor golfing options and pt stated he has been wanting to plan this with a friend. Pt will schedule a golf date with his friend before discharge per pt report. Risks/Concerns:: Pt denies any active suicidal ideations, plan, or intent as of 09/03/21. Pt denies any passive thoughts of . No HI. Progress Toward Goals/Plan:: Pt is responding well to tx and he continues to make progress towards tx goals. Pt's overall DSM-5 scores have decreased by 57% since admission with depression decreasing by 50% and anxiety by 75%. Pt reports he is following through with projects at home and he is communicating better with his spouse. Pt wants to work on maintenance strategies as well as increasing self-care through engaging in hobbies he used to enjoy. Pt will continue IOP tx for two more weeks to support mood stability, further combat distortions that reinforce guilt, and establish aftercare. Time Stopped:: 10:10
--- NOTE | 2021-09-06 09:03 | BH.SGPN.GN ---
Behaviors/Verbalizations/Mental Status: []Client alert and oriented, casually dressed and groomed. Eye contact good. Motor activity appropriate. Speech within normal limits. Affect congruent, mood anxious and euthymic. Thoughts linear, logical, no signs of hallucinations or delusions. Reviewed client?s symptom tracker denies any suicidal ideation, plan, or intent as of 08/31/21. Client Response/Progress/Benefit: []Client responded well to session, attentive and willing to process with group. Client reports feeling more optimistic now than he had earlier this morning, sharing frustrations related to work. Client explained that he has been informed of unexpected changes in his work schedule on multiple occasions recently. Expressed frustration and discussed a need to more firmly communicate his boundaries in order to prevent this from recurring. Shared several positives including making plans to take his daughter to get her license, as well as accomplishing several small steps towards his home repair projects. Noted feeling accomplished and proud of the progress he has made since beginning IOP tx. Appeared to benefit from supportive environment and group discussion. Client will continue IOP tx to promote healthy communication with supports, improve stress management, and continue to encourage mood stability. Narrative Note: []
--- NOTE | 2021-09-06 10:15 | BH.SGPN.GN ---
Behaviors/Verbalizations/Mental Status: []Client alert and oriented, casually dressed and groomed. Eye contact good. Motor activity appropriate. Speech within normal limits. Affect congruent, mood euthymic. Thoughts linear, logical, no signs of hallucinations or delusions. Client Response/Progress/Benefit: []Client responded well to session AEB sharing and listening attentively to others. Client participated in group activity identifying identifying famous individuals and how they overcame failure to be successful. Group defined fear of failure, and identified its impact on their mental health and relationships. Client provided an example of an impact being that he settled for a ?less challenging? career due to fear of failure. Client participated in experiential activity, providing supportive feedback to others and problem solving with group members. Appeared to benefit from increased knowledge of fear of failure and improved self-awareness. Will continue IOP treatment to increase positive self-talk and continue decreasing rumination to improve daily functioning. Narrative Note: []
--- NOTE | 2021-09-06 11:15 | BH.SGPN.GN ---
Behaviors/Verbalizations/Mental Status: []Client alert and oriented, casually dressed and groomed. Eye contact good. Motor activity appropriate. Speech within normal limits. Affect congruent, mood euthymic. Thoughts linear, logical, no signs of hallucinations or delusions. Client Response/Progress/Benefit: []Client responded well to session, engaged in the experiential activity and attentive throughout group processing. Client completed fear of failure worksheet and was able to identify thoughts and behaviors that reinforce personal fear of failure including: self-doubt, excuses, trying to fit a mold, and fear of embarrassment. Client also reported that fear of failure has kept client from going into the career he wanted. Client participated in small group discussion regarding strategies to overcome fear of failure. Identified wanting to work on challenging fear of failing by setting small goals to work toward and managing expectations. Appeared to benefit from increased knowledge of strategies to combat fear of failure and gaining self-awareness. Client will continue IOP treatment to increase use of self-care and to further reduce negative thinking patterns. Narrative Note: []
== END 2021-09-06 23:59 | disposition home or self-care (01) ==
LOC: BHIOP 07:32
PROVIDERS: Referring Provider Psychiatry & Neurology Psychiatry; Visit Provider Psychiatry & Neurology Psychiatry
DX: F33.2 Major depressive disorder, recurrent severe without psychotic features (principal); F41.8 Other specified anxiety disorders; G47.33 Obstructive sleep apnea (adult) (pediatric); Z79.899 Other long term (current) drug therapy
CPT/HCPCS: S9480; 90832; 90834; 90853

== ENCOUNTER 2021-08-27 12:45 | Outpatient (CLI) | payer OTHER, SELFPAY ==
--- NOTE | 2021-08-27 12:53 | US_ITS ---
STUDY: THYROID ULTRASOUND REASON FOR EXAM: Male, 55 years old. NODULE TECHNIQUE: Ultrasound evaluation of the thyroid was performed with real-time and static montano-scale imaging. COMPARISON: 12/27/2019 FINDINGS: RIGHT LOBE: The right lobe of the thyroid gland measures 4.8 x 1.9 x 1.8 cm. There is a homogeneous echotexture. Nodule 1:10 x 8 x 10 mm solid isoechoic wider than tall smoothly marginated nodule with no echogenic foci (TR 3) in the posterior right lobe consistent with an adenoma. Nodule 2:6 x 6 x 5 mm solid isoechoic wider than tall smoothly marginated nodule with no echogenic foci (TR 3) in the anterior right lobe consistent with an adenoma. LEFT LOBE: The left lobe of the thyroid gland measures 5.6 x 1.9 x 1.0 cm. There is a homogeneous echotexture. Nodule 3:8 x 8 x 7 mm solid hypoechoic wider than tall smoothly marginated nodule with peripheral calcification (TR 4) in the posterior left lobe consistent with an adenoma. Nodule 4:6 x 7 x 4 mm mixed cystic and solid isoechoic wider than tall smoothly marginated nodule with no echogenic foci (TR 2) in the posterior left lobe consistent with an adenoma. ISTHMUS: The isthmus measures 3 mm thick. . The regional lymph nodes are normal. US/Thyroid IMPRESSION: Multinodular thyroid gland without goiter Electronically Signed: Rex Santos MD at 11:28 EST ,
== END 2021-08-27 23:59 | disposition home or self-care (01) ==
LOC: US 12:48
PROVIDERS: PCP Family Medicine; Referring Provider Family Medicine; Visit Provider Family Medicine
DX: E04.2 Nontoxic multinodular goiter (principal)
CPT/HCPCS: 76536

== ENCOUNTER 2021-09-07 07:40 | Outpatient (RCR) | payer OTHER, SELFPAY ==
[2021-09-07 00:38] VITALS: BP 140/92; PULSE 57
--- NOTE | 2021-09-09 09:05 | BH.SGPN.GN ---
Behaviors/Verbalizations/Mental Status: [] Eye contact is good. Motor activity is appropriate. Appearance is casual. Speech is Appropriate. Mood is euthymic. Affect is full. Thoughts are linear and logical. No evidence of psychosis. Reviewed daily check in sheet and no reports of suicidal thoughts. Client Response/Progress/Benefit: [] Pt was an active participant in group discussion. Attentive. Provided feedback when appropriate. Daily symptom tracker notes 07/14 for depression and anger. Emotion for today is optimistic. Mental health win revolved around handling an anger trigger yesterday which in the past would have ruined my whole week. Shared that he is processing his thoughts and managing his emotions more appropriately recently. He gave several examples. I'm not reacting impulsively . Is also challenging and reframing negative automatic thoughts. Progress noted. Benefited from group support, encouragement, and feedback. Will continue in IOP to maintain gains and prevent decompensation. Narrative Note: []
--- NOTE | 2021-09-09 10:15 | BH.SGPN.GN ---
Behaviors/Verbalizations/Mental Status: []Client alert and oriented, casually dressed and groomed. Eye contact good. Motor activity appropriate. Speech within normal limits. Affect congruent, mood anxious and euthymic. Thoughts linear, logical, no signs of hallucinations or delusions. Client Response/Progress/Benefit: []Pt engaged throughout AEB taking notes, listening attentively, and providing some input throughout. Attentive during psychoeducation and discussed the importance of goal-setting with the group. Pt indicated ?Goals can help motivate you?. Group identified potential benefits of having goals to include: they motivate, increase self-confidence, provide a sense of accomplishment, help hold you accountable, and provide a sense of purpose. Group also worked together to identify barriers to goal-setting which included; negative self-talk, lack of motivation, fear of other?s reactions, unrealistic expectations, and procrastination/excuses. Pt identified personal barriers to include negative self-talk and communicating goals with others. Benefited from increased awareness of benefits and barriers to goal-setting. Pt will continue in IOP to prevent decompensation, increase thought challenging and use of healthy coping skills, as well as further improve daily functioning. Narrative Note: []
--- NOTE | 2021-09-09 14:14 | BH.MDN ---
Multi-Disciplinary Note - Note 30-min Individual Time Started:: 11:40 Date: 09/09/21 Purpose of session/treatment goals addressed:: The purpose of this session was to address current stressors, review homework, and begin working on pt's maintenance plan. Eye Contact:: Good Motor Activity:: Appropriate Appearance:: Neat Speech:: Appropriate Mood:: Euthymic, Anxious Affect:: Congruent Thoughts:: Linear, Logical, No evidence of hallucinations/delusions noted Staff Interventions:: thought challenging, CBT techniques, mindfulness skills, discharge planning, strengths perspective, other - began pt's maintenance plan to promote gains. Client Response:: Pt responded well to session, open to meeting with therapist. Pt reports he continues to do well outside of IOP tx and he is working on balancing self-care, work, and home projects. Pt shared he had to reschedule some plans for next week to reduce anxiety and prioritize IOP tx. Pt reported he has been reflecting on his boundary setting and shared I realized I have a hard time saying no. This results in resentment and feeling overwhelmed. Pt reported he is feeling better, but he is worried about leaving IOP because he does not want his old thought patterns to return. Discussed being more anxious about anger returning. Able to gain insight to the emotions that fuel anger including anxiety, guilt, and depression. Pt reported feeling relief and hope that if he can manage his underlying emotions, it will continue to help regulate anger. Discussed completing a maintenance plan for anger/anxiety, depression, and negative self-talk. This maintenance plan included triggers, warning signs, coping skills and supports, and what to avoid. Pt completed the section for anger/anxiety in session. Triggers included: changes in routine, slow drivers, and having to set boundaries. Coping skills included: deep breathing, giving self time to think before responding, and asking himself how he will feel in the future depending on his reaction. Pt will complete the rest of the maintenance plan for homework. Risks/Concerns:: Pt denies any suicidal ideations, plan, or intent as of 09/09/21. Pt is future oriented. No HI. Progress Toward Goals/Plan:: Pt continues to make progress towards tx goals AEB self-report of improved emotional regulation skills when angry and overall better functioning. Pt expresses anxiety about leaving IOP tx because he does not want to fall back into old patterns of thinking and behavior. Pt also continues to endorse guilt, negative thinking, and some irritability. Receptive to maintenance plan and shared this will be helpful for him to prevent pitfalls. Pt is unsure if he wants to return to his old therapist, but he is open to scheduling an appointment following discharge from IOP. Pt will participate in IOP aftercare. Time Stopped:: 12:15
--- NOTE | 2021-09-10 09:00 | BH.SGPN.GN ---
Behaviors/Verbalizations/Mental Status: [] Eye contact is good. Motor activity is appropriate. Appearance is casual. Speech is Appropriate. Mood is euthymic. Affect is flat. Thoughts are linear and logical. No evidence of psychosis. Reviewed daily check in sheet and no reports of suicidal ideations or intent. Client Response/Progress/Benefit: [] Pt participated at times during the group discussion. Attentive. Provided appropriate feedback. Daily symptom tracker notes 07/14 for depression. Mental health win is staying focused on projects at home. I accomplishing things and not getting overwhelmed. He shared how his mental health is impacted by not being able to say no and poor boundary setting. This resulted in group discussion on the effects of people pleasing and always saying yes to requests from others. Pt identified with responses from peers which was beneficial. Progress noted per pt report. Will continue in IOP to maintain gains and prevent decompensation. Narrative Note: []
--- NOTE | 2021-09-13 09:00 | BH.SGPN.GN ---
Behaviors/Verbalizations/Mental Status: [] Eye contact is good. Motor activity is appropriate. Appearance is casual. Speech is Appropriate. Mood is depressed. Affect is flat. Thoughts are linear and logical. No evidence of psychosis. Reviewed daily check in sheet and no reports of suicidal ideations or intent. Client Response/Progress/Benefit: [] Pt was an active participant in group discussion. Attentive. Mental health win was completed his goals and projects for the weekend. He shared a stressor which included a trigger to rumination. Trigger led to thoughts that he let his family down which ultimately led to feelings of guilt, regret, and depression. These are the thoughts that have led to my downfall in the past. He was vague on skills used except to say we talked through it and I think everything will work out. He kept repeating I think it will be all good. Group challenged him on some cognitive distortions and minimizing his thoughts/feelings Its so trivial a thing. This event continues to impact pt. Group provided feedback and support which was beneficial. Will continue in [facility] to maintain gains. Plan to discharge this week. Narrative Note: []
--- NOTE | 2021-09-13 10:05 | BH.SGPN.GN ---
Behaviors/Verbalizations/Mental Status: []Client alert and oriented, neatly dressed and groomed. Eye contact good. Motor activity appropriate. Speech within normal limits. Affect congruent, mood calm. Thoughts linear, logical, no signs of hallucinations or delusions. Client Response/Progress/Benefit: []Pt was an attentive participant AEB taking notes and contributing throughout. Attentive during psychoeducation on Conflict Styles ( Avoidant, Competing, Accommodating, and Collaborating). Participated in interactive group discussion on benefits of conflict.? Pt along with peers identified several reasons conflict is often avoided as well as why conflict is beneficial to one?s mental health and relationships. Pt reported with family he is accommodating, but with others he can be competing. Pt shared ?I haven?t really had conflict lately? but with further exploration, pt realized he has had conflict, he has just been managing it better. Pt able to reflect on his growth in managing emotions and conflict resolution. Benefited from increased awareness on conflict styles. Will continue IOP tx to reinforce healthy coping skills, challenge distortions, and establish an aftercare plan. Narrative Note: []
--- NOTE | 2021-09-13 11:15 | BH.SGPN.GN ---
Behaviors/Verbalizations/Mental Status: []Client alert and oriented, casually dressed and appropriately groomed. Eye contact good. Motor activity appropriate. Speech within normal limits. Affect congruent, mood euthymic. Thoughts linear, logical, no signs of hallucinations or delusions. Client Response/Progress/Benefit: []Client engaged in session AEB contributing to discussion and taking notes. Client did well to participate during the activity in which participants were challenged to eliminate various items through group consensus. Client contributed to discussion of the barriers that occurred during the activity as well as the conflict resolution strategies. Client reported he wants to work on expressing his feelings by using words. Client stated he has been slowly working on communicating more openly with his supports which he stated has made positive impact on his relationships. Client stated when he would communicate with actions in the past it often would make the situation worse. Appeared to benefit from learning strategies to better manage conflict. Will continue IOP tx to continue use of healthy coping and prevent decompensation.
--- NOTE | 2021-09-16 09:05 | BH.SGPN.GN ---
Behaviors/Verbalizations/Mental Status: [] Eye contact is good. Motor activity is appropriate. Appearance is casual. Speech is Appropriate. Mood is depressed. Affect is flat. Thoughts are linear and logical. No evidence of psychosis. Reviewed daily check in sheet and no reports of suicidal ideations or intent. Client Response/Progress/Benefit: [] Pt participated at times during group discussion. Attentive. Provided appropriate feedback. Emotion for today is apprehensive. Mental health win was hanging out with friends. Admits that he started to experience anxious and self-talk geared towards not following through with meeting with friends however was able to overcome/ I don't know why I try to talk myself out of fun things. Proud of himself for using thought challenging skills. Group was helpful and empathized with struggles to avoid social events. Group gave their personal examples and feedback on how they manage negative self-talk which was beneficial to patient. Some struggles noted however pt was able to utilize skills and insight to manage. Will continue in IOP to maintain gains. Plan to discharge this week. Narrative Note: []
--- NOTE | 2021-09-16 10:20 | BH.SGPN.GN ---
Behaviors/Verbalizations/Mental Status: []Client alert and oriented, neatly dressed and groomed. Eye contact good. Motor activity appropriate. Speech within normal limits. Affect congruent, mood euthymic. Thoughts linear, logical, no signs of hallucinations or delusions. Client Response/Progress/Benefit: []Pt was an engaged participant AEB pt listening attentively to others and providing input throughout. Attentive during psychoeducation on communication styles. Assisted group with identifying benefits of effective communication on mental health which included: getting needs met, improves relationships, maintains boundaries, and prevents additional conflict. Pt identified he has been using assertive communication more often, but in the past pt has been more passive or aggressive, especially in his relationships. Pt reports being aggressive/passive has led pt to hurt people and ruin relationships. Benefited from increased awareness of different communication barriers, styles, and the importance of communicating effectively to improve mental wellness. Will continue IOP tx for one more day to reinforce the use of healthy coping skills and promote mood stability. Narrative Note: []
--- NOTE | 2021-09-16 14:50 | BH.MDN ---
Multi-Disciplinary Note - Note 30-min Individual Time Started:: 11:40 Date: 09/16/21 Purpose of session/treatment goals addressed:: To address current stressors and discuss strategies to help cope with these stressors. Another goal was to discuss discharge and aftercare. Eye Contact:: Good Motor Activity:: Appropriate Appearance:: Casual Speech:: Appropriate Mood:: Euthymic Affect:: Congruent Thoughts:: Linear, Logical, No evidence of hallucinations/delusions noted Staff Interventions:: discharge planning, taught coping skills - reviewed healthy coping skills., other - reviewed maintenance plan, discussed progress, discussed options for aftercare Client Response:: Pt responded well to session, open to meeting with therapist. Pt completed his maintenance plan from previous session and was able to identify coping skills, triggers, and warning signs for negative self-talk. Pt identified progress he has made in [facility] which included not letting anger be ?my driving force,? slowing down his thought process and catching judgmental or distorted thoughts and communicating. Pt shared he is thankful for [facility] and he hopes to do aftercare, but he has to talk with his work first. Reviewed pt's coping skills to promote gains and pt identified reflecting on positives, communicating, staying active, and challenging negative thoughts as skills pt wants to continue using. Pt expressed some worries about returning to old patterns of thinking and behaviors. Pt shared he has these worries, but he also now makes more of a conscious effort to change his reactions which is progress. Risks/Concerns:: Pt denies any suicidal ideations, plan, or intent. Denies any passive thoughts of . No HI. Progress Toward Goals/Plan:: Pt to discharge from [facility] tx as he has met his treatment goals AEB overall DSM-5 scores decreased by 74% from admission. Depression decreased by 83%, anxiety by 88%, and anger by 100%. Pt self-reports improved concentration, getting back to usual functioning, and better management of anger. Pt will continue outpatient counseling with his therapist at [facility] and pt is interested in [facility] aftercare if he can organize this with work. Time Stopped:: 12:10
--- NOTE | 2021-09-17 07:53 | BH.IGGP_ITS ---
Aftercare Plan - Demographics Treatment End Date:: 09/17/21 Psychiatrist:: Lala Beltrán Psychiatrist Office #:: [phone] [facility] Therapist:: Adri Anand Therapist Phone #:: [phone] - Plan Details Progress/Aftercare Plan Details:: Kareem has made significant strides since starting IOP as shown by his reduced symptoms, ability to challenge distortions, and getting back to his daily functioning and activities. When Kareem started IOP, he was anxious and depressed. Kareem struggled to communicate with supports, was ruminating frequently, and was not functioning at his baseline. Now, Kareem is actively using healthy coping skills like opposite action, challenging negative thoughts, and using the awareness he has gained to manage his emotions. Kareem self-reports progress in not letting anger be ?my driving force,? slowing down his thought process and catching judgmental or distorted thoughts and communicating. Kareem was always attentive during group, offered emotional support to peers, and consistently followed through with goals. In individual sessions, Kareem was receptive to feedback, consistent with homework, and willing to push himself. Kareem?s overall DSM-5 scores decreased by 74% from admission. Depression decreased by 83%, anxiety by 88%, and anger by100%. Kareem plans to follow up with outpatient counseling with Sofya at [facility]. Strategies for Success:: 1. Continue to use positive self-talk when you feel anxious, guilt, or doubting. 2. Remember thoughts are thoughts NOT facts! Just because we think/feel a certain way doesn?t make us mind-readers or fortune tellers. 3. Give yourself time to decide before responding 4. Opposite action! Continue to push yourself to do the anxious, spend time with friends/family when you want to isolate, and not give into anger. 5. Write down your feelings and share them with supports?Keep communicating. 6. Stay active! Remember you don?t have to exercise all the time, but if it helps your mood, it?s good to add it in your routine. 7. Challenge your negative thoughts and be proactive with reaching out rather than bottling emotions. 8. Maintenance! Self-care is important and so is checking in with yourself each day. 9. G.L.A.D (grateful, learned, accomplished, delighted) journal. - Appointments Appointments/Referrals to Other Services:: 1. Follow up with Sofya on 09/20/21 at 11:00am. 2. IOP aftercare from 2-3:30pm. 3. Follow up with Dr. Federico Renner for medication management. - Medications Home Medications: Home Medications alprazolam [Xanax] 0.5 mg PO DAILY PRN PRN 08/04/21 sertraline [Zoloft] 100 mg PO DAILY 08/04/21
--- NOTE | 2021-09-17 09:06 | BH.SGPN.GN ---
Behaviors/Verbalizations/Mental Status: []Eye contact is good. Motor activity is appropriate. Appearance is casual. Speech is Appropriate. Mood is euthymic and anxious. Affect is congruent. Thoughts are linear and logical. No evidence of psychosis. Reviewed daily check in sheet and no reports of suicidal ideations or intent. Client Response/Progress/Benefit: []Pt receptive of session and engaged throughout. Reports current emotion as ?happy? today as this is his last day in IOP tx and he is proud of the progress he has made throughout the time he has attended the program. Discussed areas of improvement including improved ability to accept and openly discuss his mental health with supports. Reflected on improved relationships with his supports as a result as well. Shared improved ability to ?curb quick reactions? and better self-regulate as well. Discussed skills her can continue to use to maintain gains post discharge as well. Pt appeared to benefit from acknowledging progress and supportive feedback provided by group. Will continue with individual outpatient tx to maintain gains and prevent decompensation post IOP d/c. Narrative Note: []
--- NOTE | 2021-09-17 10:00 | BH.DS ---
Discharge Summary - Demographics Date of Admission:: 08/02/21 Discharge Date: 09/17/21 Presenting Problems at Admission:: Client is a 55-year-old male with a history of depression. Client was referred to IOP by his outpatient therapist and PCP due to worsening depression which has been impacting client's functioning. Client reports worsening symptoms over the past month with no specific trigger. At intake, client endorsed poor sleep, poor appetite with a loss of 10 pounds in four weeks, low energy, no motivation, hopelessness, anhedonia, and isolative behaviors. Client also reported frequent panic attacks and excessive worry about regrets and past decisions. Client has been experiencing passive thoughts of , but denies any active SI. Client endorses inappropriate guilt and negative thinking patterns that reinforce isolation. Client's symptoms are impacting his overall functioning and relationships. Discharge Diagnoses:: Major depressive disorder, recurrent, severe without psychosis F 33.2; Generalized anxiety disorder Reason for Discharge:: Client has made significant progress towards his treatment goals AEB his reduction in DSM-5 symptom scores, self-report of increased ability to managing symptoms, and improved functioning. Client no longer meets criteria for [facility] level of care and will transition to outpatient counseling and [facility] aftercare. - Treatment Progress During Treatment & Response: Pt has made significant strides since starting IOP as shown by his reduced symptoms, ability to challenge distortions, and getting back to his daily functioning and activities. When Pt started IOP, he was anxious and depressed. Pt struggled to communicate with supports, was ruminating frequently, and was not functioning at his baseline. Now, Pt is actively using healthy coping skills like opposite action, challenging negative thoughts, and using the awareness he has gained to manage his emotions. Pt self-reports progress in not letting anger be ?my driving force,? slowing down his thought process and catching judgmental or distorted thoughts and communicating. Pt was always attentive during group, offered emotional support to peers, and consistently followed through with goals. In individual sessions, Pt was receptive to feedback, consistent with homework, and willing to push himself. Pt?s overall DSM-5 scores decreased by 74% from admission. Depression decreased by 83%, anxiety by 88%, and anger by 100%. Issues Still to be Addressed:: Client can benefit from ongoing outpatient counseling to further improve mood stability, reinforce coping skills to manage negative self-talk and guilt, and process daily stressors. Client can also continue to work on communication skills with his , emotional regulation skills, and self-care. Discharge Recommendations/Instructions:: Pt will follow up with Sofya jean [facility] for individual counseling on 09/20/21 at 11:00am. Pt will also participate in IOP aftercare on from 2-3:30pm. Lastly, pt will follow up with Dr. Federico Renner for medication management. Discharge Handout: Complete Discharge Handout with client on aftercare options and continuity of care.
--- NOTE | 2021-09-17 10:15 | BH.SGPN.GN ---
Behaviors/Verbalizations/Mental Status: []Client alert and oriented, casually dressed and groomed. Eye contact good. Motor activity appropriate. Speech within normal limits. Affect congruent, mood euthymic. Thoughts linear, logical, no signs of hallucinations or delusions. Client Response/Progress/Benefit: []Client responded well to session AEB sharing and listening attentively to others. Client participated in activity illustrating how positive and negative perspectives affect how individuals view situations, sharing observations and insights. Group discussed and defined perspective and what impacts it, with client providing physical health as an example. Client identified that having a negative perspective leads to self sabotage and not engaging with others. Appeared to benefit from increased knowledge and self-awareness of perspective. Will continue IOP treatment to continue increasing mood stability and decreasing rumination to improve daily functioning. Narrative Note: []
--- NOTE | 2021-09-17 11:15 | BH.SGPN.GN ---
Behaviors/Verbalizations/Mental Status: []Client alert and oriented, neatly dressed and groomed. Eye contact good. Motor activity appropriate. Speech within normal limits. Affect congruent, mood euthymic. Thoughts linear, logical, no signs of hallucinations or delusions Client Response/Progress/Benefit: []Pt did well to remain attentive throughout session, AEB providing input throughout discussion. Engaged as group reviewed the importance of taking a strengths-based approach to foster a healthier perspective and better manage mental health symptoms. Completed strengths exploration worksheet and identified personal strengths to include: humor, open-mindedness, and persistence. Pt reported these strengths are currently helping pt be more sympathetic to others which helps pt challenge his perspective. Pt stated not slowing down to breathe keeps pt from using strengths and pt helped group identify strategies to increase acknowledgement of strengths. Benefited from identifying personal strengths and strategies for enhancing use of identified strengths. Pt to discharge from IOP tx today as pt has met tx goals and no longer meets criteria for IOP level of care. Narrative Note: []
== END 2021-09-17 12:33 | disposition home or self-care (01) ==
LOC: BHIOP 07:40
PROVIDERS: PCP Family Medicine; Referring Provider Psychiatry & Neurology Psychiatry; Visit Provider Psychiatry & Neurology Psychiatry
DX: F33.2 Major depressive disorder, recurrent severe without psychotic features (principal); F41.8 Other specified anxiety disorders
CPT/HCPCS: S9480; 90832; 90853

== ENCOUNTER 2021-10-07 08:30 | Outpatient (RCR) | payer OTHER, SELFPAY ==
--- NOTE | 2021-10-07 14:00 | BH.SGPN.GN ---
Behaviors/Verbalizations/Mental Status: []Client alert and oriented, casually dressed and groomed. Eye contact good. Motor activity appropriate. Speech within normal limits. Affect congruent, mood euthymic. Thoughts linear, logical, no signs of hallucinations or delusions. Client Response/Progress/Benefit: []Client responded well to session AEB sharing and listening attentively to others. Client reported taking time for himself this week, and taking his medications consistently. This is client?s first day of aftercare treatment. Client was an active participant in group discussion of healthy decision making, including what goes into making a healthy decision and what keeps us from making them. Client participated in experiential small group activity and processing. Client identified mental and physical self care as areas of life he would like to make healthier decisions. Client?s goal to work toward making healthier decisions this week is to write out a schedule for his exercise routine. Appeared to benefit from increased knowledge of healthy decision making. Will continue aftercare treatment to reinforce healthy coping skills and promote gains. Narrative Note: []
--- NOTE | 2021-10-07 14:27 | BH.MTP ---
Master Treatment Plan - Patient Information Program Physician:: Dr. Lala Beltrán Primary Therapist:: Adri HODGSON - Psychiatric Diagnoses Psychiatric Diagnoses:: Major depressive disorder, recurrent, severe without psychosis F 33.2; Generalized anxiety disorder Diagnosis Code(s):: F 33.2 - Estimated LOS Estimated LOS (in weeks):: 10 Problem/Goal #1 - Problem/Goal #1 Stated Goal:: client will maintain or see a reduction in symptoms AEB client score on the DSM 5 cross-cutting measure and improve client's daily functioning. - Objectives Objective #1 Stated Objective: Client will continue to consistently apply healthy coping skills to maintain progress made in IOP tx. Interventions: Through group therapy, client will review warning signs and triggers as well as healthy coping skills learned in IOP tx to successfully maintain gains while transitioning into outpatient therapy. Discharge Criteria: Client will have accomplished this goal when client's score on the DSM-5 cross-cutting measure has either maintained or reduced over a 10 week period. Target Date: 12/09/21 Review Date: 10/28/21 Status: open Objective #2 Stated Objective: Client will learn and utilize 2-3 maintenance strategies to prevent decompensation. Interventions: Through group therapy, client will be provided with education on healthy maintenance behaviors, relapse prevention techniques, and healthy coping strategies. Discharge Criteria: Client will have accomplished this goal when can report using at least 2 maintenance skills to prevent decompensation. Target Date: 12/09/21 Review Date: 10/28/21 Status: open
== END 2021-10-07 23:59 ==
LOC: BHOG 08:30
PROVIDERS: PCP Family Medicine; Referring Provider Psychiatry & Neurology Psychiatry; Visit Provider Psychiatry & Neurology Psychiatry
DX: F33.2 Major depressive disorder, recurrent severe without psychotic features (principal); F41.1 Generalized anxiety disorder
CPT/HCPCS: 90853

== ENCOUNTER 2021-10-08 10:34 | Outpatient (RCR) | payer OTHER, SELFPAY ==
--- NOTE | 2021-10-28 15:06 | BH.TPR ---
Treatment Plan Review Date of Admission:: 10/07/21 Date of Treatment Plan Review:: 10/28/21 Admitting Diagnoses:: Major depressive disorder, recurrent, severe without psychosis F 33.2; Generalized anxiety disorder Current Diagnoses:: Major depressive disorder, recurrent, severe without psychosis F 33.2; Generalized anxiety disorder Patient's Response to Treatment:: Pt responding well to treatment AEB pt's mostly consistent attendance, active engagement in group discussions, follow up with outpatient therapy and psychiatry, and reporting use of skills outside treatment environment. Pt is not always able to make aftercare due to work, but pt has been a good communicator. Status of Current Problems and Symptoms: Ongoing stressors include continuing to implement work-life balance, challenging negative self-talk, finding time for self-care, and continuing to manage triggers. Problem #1 Problem Name:: Pt will maintain or see a reduction in sx Status of Goals:: Obj 1 - Pt has been able to maintain gains made in IOP based on pt's additional reduction of 87% in overall symptoms on the DSM-5 since IOP admission. Based on pt's self-report, pt is experiencing improved emotional regulation skills, reduced negative self-talk, and improved ability to set healthy boundaries Obj 2 - complete with ongoing work encouraged. Client has been consistently reporting using self-talk, practicing self-care, challenging thoughts, and opposite action to cope. Team Recommendations:: Recommended client continue IOP aftercare group in addition to attending regular outpatient counseling in order to maintain gains.
--- NOTE | 2021-11-05 14:00 | BH.SGPN.GN ---
Behaviors/Verbalizations/Mental Status: []Client alert and oriented, casually dressed. Eye contact good. Motor activity appropriate. Speech within normal limits. Affect full, mood euthymic, positive. Thoughts linear, logical, no signs of hallucinations or delusions. Client Response/Progress/Benefit: []Pt responded well to session AEB pt providing input during discussion and listening attentively to peers. Pt stated his outpatient therapist discharged him from individual counseling because he's doing so well and doesn't need it at this time. Pt stated he has been continuing to work on his open communication with his family and trying to spend more time with his children. Pt stated using deep breath and taking a step back to help him maintain progress. Pt engaged in discussion about self-love. Pt worked with group to identify strategies to increase self-love. Pt stated wanting to work on self-love by working on forgiving himself for past mistakes. Pt seemed to benefit from reviewing treatment progress and stressors as well as learning about how to increase self-love. Pt to continue aftercare group to promote ongoing use of healthy coping, continue to use open communication, and prevent decompensation.
== END 2021-11-06 23:59 ==
LOC: BHOG 10:34
PROVIDERS: PCP Family Medicine; Referring Provider Psychiatry & Neurology Psychiatry; Visit Provider Psychiatry & Neurology Psychiatry
DX: F33.2 Major depressive disorder, recurrent severe without psychotic features (principal); F41.1 Generalized anxiety disorder
CPT/HCPCS: 90853

== ENCOUNTER 2021-11-08 08:35 | Outpatient (RCR) | payer OTHER, SELFPAY ==
--- NOTE | 2021-11-11 14:00 | BH.SGPN.GN ---
Behaviors/Verbalizations/Mental Status: []Client alert and oriented, casual in appearance. Eye contact good. Motor activity appropriate. Speech within normal limits. Affect congruent. Mood euthymic. Thoughts linear, logical, no signs of hallucinations or delusions Client Response/Progress/Benefit: []Pt responded well to session AEB pt openly sharing thoughts and feelings and completing worksheet. Pt completed the self-reflection sheet stating they have been taking medications consistently, but they did not have a counseling or psychiatry appointment this week. Pt also reports using coping skills such as deep breathing, counting, and reminding himself that his past does not define him which was his goal from last week. Pt responded well to group discussion and review about self-care. Pt stated they will work on following self-care activities: walking or running, journaling, and enjoying time at the beach as pt is going on vacation. Pt seemed to benefit from support from peers and identifying self-care plan. Pt will continue IOP aftercare to promote gains and further increase mood stability. Narrative Note: []
--- NOTE | 2021-11-25 14:00 | BH.SGPN.GN ---
Behaviors/Verbalizations/Mental Status: []Pt alert and oriented, neatly dressed and groomed. Eye contact good. Motor activity appropriate. Speech within normal limits. Affect congruent, mood euthymic. Thoughts linear, logical, no signs of hallucinations or delusions. Client Response/Progress/Benefit: []Pt responded well to session, actively contributing. Pt checked in using the self-reflection worksheet. Pt did not have a counseling or psychiatry appointment this week. Pt has been taking medication as prescribed and has been using calming skills as well as purposefully putting himself in stressful situations to practice coping. Pt also has been journaling and ?slowing down.? Pt contributed to the discussion on gratitude and its benefits. Pt attentive during discussion of internal vs. external gratitude. Pt receptive to participating in the group seven-day gratitude challenge. Pt selected one gratitude reflection per day and stated to hold himself accountable he will set alarms on his phone. Appeared to benefit from connecting with peers and practicing gratitude. Will continue IOP tx promote mood stability and reinforce healthy coping skills. Narrative Note: []
--- NOTE | 2021-12-02 14:00 | BH.SGPN.GN ---
Behaviors/Verbalizations/Mental Status: []Client alert and oriented, casually dressed and groomed. Eye contact good. Motor activity appropriate. Speech within normal limits. Affect congruent, mood euthymic. Thoughts linear, logical, no signs of hallucinations or delusions. Client Response/Progress/Benefit: []Pt responded well to session, provided input, and listened attentively to peers. Reported continuing to maintain consistent self-care which has aided in ongoing mood stability. Identified ongoing use of healthy skills such as deep breathing, journaling, and communicating what he appreciates about his supports. Pt reports this has helped to prevent unhealthy thinking patterns and keep working on his mental health goals. Pt engaged in discussion on self-advocacy. Worked with group to identify the benefits of self-advocacy, as well as common barriers. Reviewed the personal bill of rights and shared she does well to advocate for her right to ?follow my own beliefs and values?. Discussed struggling with personal right of ?I have the right to express all of my feelings positive and negative?. Noted plans to take steps in better advocating for this right by more regularly checking in which himself on his emotions and communicating changes in his emotion as needed with safe supports. Client seemed to benefit from reviewing treatment progress and skill application, as well as learning about how to increase self-advocacy. Client to continue aftercare to promote gains, prevent regression, and further improve functioning. Narrative Note: []
--- NOTE | 2021-12-02 14:37 | BH.DS_ITS ---
Discharge Summary - Demographics Date of Admission:: 10/07/21 Discharge Date: 12/02/21 Presenting Problems at Admission:: Pt discharged from IOP tx and transitioned to IOP aftercare to maintain gains Pt made in IOP and to reinforce healthy coping skills. At admission to IOP aftercare, pt continued to experience mild symptoms of anxiety, depression, and anger. Pt was also experiencing stressors of work- life balance and combatting ruminations at times. Discharge Diagnoses:: Major depressive disorder, recurrent, severe without psychosis F 33.2; Generalized anxiety disorder Reason for Discharge:: Pt has accomplished tx goals AEB ability to maintain mood stability and gains made in IOP. Pt's DSM-5 scores decreased by an additional 87% post IOP admission. Pt will follow up with his PCP for medication management. - Treatment Progress During Treatment & Response: Pt responded well and made progress in IOP aftercare as evidenced by pt's participation in group discussions and self- report of consistently applying coping skills. Pt's overall DSM-5 scores decreased by 87% from IOP admission. Pt?s depression decreased by 100% since IOP admission and pt?s anxiety decreased by 88% since IOP admission. Additionally, at discharge Pt was reporting an improved mood, more positive thinking patterns, consistent use of healthy coping skills, and improved ability to function. Issues Still to be Addressed:: Maintenance, reducing guilt, communication of emotions, boundaries, and self-care. Discharge Recommendations/Instructions:: Pt's outpatient therapist ended services with pt due to pt's significant improvement in symptoms. Pt is still taking medications and he will continue to follow up with his PCP. Discharge Handout: Complete Discharge Handout with client on aftercare options and continuity of care.
== END 2021-12-07 23:59 ==
LOC: BHOG 08:35
PROVIDERS: PCP Family Medicine; Referring Provider Psychiatry & Neurology Psychiatry; Visit Provider Psychiatry & Neurology Psychiatry
DX: F33.2 Major depressive disorder, recurrent severe without psychotic features (principal); F41.1 Generalized anxiety disorder
CPT/HCPCS: 90853

== ENCOUNTER → 2021-11-30 | Outpatient (CLI) | payer OTHER, SELFPAY ==
[2021-11-30 13:00] LABS: Cholesterol 187 mg/dL (200); High Density Lipoprotein 60 mg/dL; Triglycerides 57 mg/dL; Very Low Density Lipoprotein 11 mg/dL (5-40)
== END | disposition home or self-care (01) ==
LOC: MTLAB 09:45
PROVIDERS: PCP Family Medicine; Referring Provider Family Medicine; Visit Provider Family Medicine
DX: Z00.00 Encounter for general adult medical examination without abnormal findings (principal)
CPT/HCPCS: 36415; 80061

== ENCOUNTER 2021-12-08 07:33 | Outpatient (RCR) | payer OTHER, SELFPAY | END 2021-12-09 12:27 | disposition home or self-care (01) | LOC: BHOG 07:33 | PROVIDERS: PCP Family Medicine; Referring Provider Psychiatry & Neurology Psychiatry; Visit Provider Psychiatry & Neurology Psychiatry | DX: Z00.00 Encounter for general adult medical examination without abnormal findings (principal) ==

== ENCOUNTER → 2022-05-23 | Outpatient (CLI) | payer OTHER, SELFPAY ==
[2022-05-23 12:25] LABS: Thyroid Stim Hormone (TSH) 1.02 uIU/mL (0.358-3.74)
== END | disposition home or self-care (01) ==
LOC: BFHLAB 10:12
PROVIDERS: PCP Family Medicine; Visit Provider Family Medicine
DX: E04.2 Nontoxic multinodular goiter (principal)
CPT/HCPCS: 36415; 84439; 84443

== ENCOUNTER → 2022-08-18 | Outpatient (CLI) | payer OTHER, SELFPAY ==
--- NOTE | 2022-08-18 14:20 | US_ITS ---
STUDY: THYROID ULTRASOUND REASON FOR EXAM: Male, 56 years old. Known nodules TECHNIQUE: Ultrasound evaluation of the thyroid was performed with real-time and static montano-scale imaging. COMPARISON: 08/27/2021 FINDINGS: RIGHT LOBE: The right lobe of the thyroid gland measures 5.3 x 2.0 x 1.6 cm. There is a homogeneous echotexture. 2 separate stable solid/cystic nodules identified larger measures 1.1 x 1.3 x 0.9 cm. LEFT LOBE: The left lobe of the thyroid gland measures 5.3 x 1.9 x 1.5 cm. There is a homogeneous echotexture. 2 separate stable complex solid and cystic nodules, larger measures 0.8 x 0.8 x 0.5 cm. ISTHMUS: The isthmus measures 0.3 cm there is a new complex solid and cystic isthmus nodule measuring 0.6 x 5.5 x 0.3 cm. The regional lymph nodes are normal,. Largest measures 25.6 x 0.3 cm US/Thyroid IMPRESSION: Stable borderline enlarged thyroid with homogeneous echotexture and bilateral solid and cystic nodules unchanged from the previous study. There is a new solid/cystic complex nodule in the isthmus measuring 0.6 cm. Because this is a new nodule, one-year follow-up is recommended to assess stability. Electronically Signed: Dutch Womack MD at 14:33 EST ,
== END | disposition home or self-care (01) ==
LOC: US 14:19
PROVIDERS: PCP Family Medicine; Referring Provider Family Medicine; Visit Provider Family Medicine
DX: E04.2 Nontoxic multinodular goiter (principal)
CPT/HCPCS: 76536

== ENCOUNTER → 2022-09-23 | Outpatient (CLI) | payer OTHER, SELFPAY ==
[2022-09-23 15:13] LABS: Color, Urine Yellow (Yellow); Glucose, Dipstick Normal (Normal); Ketone-Dipstick Negative (Negative); Leukocyte Esterase-Dipstick Negative /ul (Negative); Nitrite-Dipstick Negative (Negative); Occult Blood-Urine Negative /ul (Negative); Protein-Dipstick Negative (Negative); Specific Gravity, Urine 1.005 (1.002-1.030); Urine Bilirubin Dipstick Negative (Negative); Urine Clarity Clear (Clear); Urine Urobilinogen Normal (Normal); Urine pH 6.5 (5.0 - 8.0)
[2022-09-23 15:18] LABS: PSA,Total - Annual Screen 1.51 ng/mL (0.00-4.00)
== END | disposition home or self-care (01) ==
LOC: BFHLAB 13:28
PROVIDERS: PCP Family Medicine; Referring Provider Family Medicine; Visit Provider Family Medicine
DX: Z12.5 Encounter for screening for malignant neoplasm of prostate (principal); R36.1 Hematospermia
CPT/HCPCS: 36415; 81002; 84153; G0103

== ENCOUNTER → 2022-11-23 | Outpatient (CLI) | payer OTHER, SELFPAY ==
[2022-11-23 12:53] LABS: Cholesterol 201 mg/dL (200); Glucose 84 mg/dL (74-106); High Density Lipoprotein 79 mg/dL; Triglycerides 55 mg/dL; Very Low Density Lipoprotein 11 mg/dL (5-40)
== END | disposition home or self-care (01) ==
LOC: BFHLAB 08:34
PROVIDERS: PCP Family Medicine; Referring Provider Family Medicine; Visit Provider Family Medicine
DX: Z00.00 Encounter for general adult medical examination without abnormal findings (principal)
CPT/HCPCS: 36415; 80061; 82947

== ENCOUNTER → 2023-08-28 | Outpatient (CLI) | payer OTHER, SELFPAY ==
--- NOTE | 2023-08-28 12:44 | US_ITS ---
STUDY: THYROID ULTRASOUND REASON FOR EXAM: Male, 57 years old. 1 YR FU OF THYROID ENLARGEMENT TECHNIQUE: Ultrasound evaluation of the thyroid was performed with real-time and static montano-scale imaging. COMPARISON: Comparison is made with prior study of August 18, 2022. FINDINGS: RIGHT LOBE: The right lobe of the thyroid gland is enlarged and measures 5.1 cm x 1.9 cm x 1.7 cm. There is a homogeneous echotexture. There is a 1.1 cm x 1.2 cm x 1 cm complex solid/cystic nodule in the lower pole of the right lobe of the thyroid. A similar-appearing nodular density measuring 8 mm x 6 mm x 6 mm is seen as well. There has been essentially no change. LEFT LOBE: The left lobe of the thyroid gland is enlarged and measures 5.6 cm x 1.8 cm x 1.9 cm. There is a homogeneous echotexture. Once again, 2 separate stable complex solid and cystic nodules are seen. The larger measures 8 mm x 8 mm x 6 mm. ISTHMUS: The isthmus measures 4 mm. Stable 6 mm x 5 mm x 3 mm nodule in the isthmus. The regional lymph nodes are normal. US/Thyroid IMPRESSION: Stable examination. Electronically Signed: Efren Katz MD at 8:58 EST ,
== END | disposition home or self-care (01) ==
LOC: US 12:40
PROVIDERS: PCP Family Medicine; Referring Provider Family Medicine; Visit Provider Family Medicine
DX: E04.2 Nontoxic multinodular goiter (principal)
CPT/HCPCS: 76536

== ENCOUNTER → 2023-11-03 | Outpatient (CLI) | payer OTHER, SELFPAY ==
[2023-11-03 12:22] LABS: Absolute Lymphocyte Count 1.26 X10^3/uL (0.83-4.51); Absolute Neutrophil Count 2.2 X10^3/uL (2.0-7.7); Basophil# 0.04 X10^3/uL; Eosinophil# 0.19 X10^3/uL; Eosinophils% 4.6 % (0-5); Hematocrit 41.9 % (40-54); Hemoglobin 13.7 g/dL (13.0-16.5); Lymphocyte # 1.26 X10^3/ul (0.83-4.51); Lymphocyte % 30.4 % (19-41); Mean Corp Hgb Conc 32.7 g/dL (32-36); Mean Corpuscular Hgb 29.9 pg (27.0-32.0); Mean Corpuscular Volume 91.5 fL (80-94); Mean Platelet Vol. 9.7 fl (6.2-12.0); Monocyte# 0.49 X10^3/uL; Monocyte% 11.8 % (0-10); NRBC Flagged by Analyzer 0 % (0-5); Neutrophil # 2.15 X10^3/uL (2.7-7.7); Platelet Count 225 K/mm3 (150-450); RBC Distribution Width CV 13.1 % (11.6-14.6); RBC Distribution Width SD 43.7 fl (35.1-43.9); Red Blood Count 4.58 M/mm3 (4.6-6.2); White Blood Count 4.1 K/mm3 (4.4-11.0)
[2023-11-03 13:18] LABS: ALB/GLOB Ratio 1.1 RATIO (0.9-2.4); AST(SGOT) 29 U/L (15-37); Alanine Aminotransfer ALT/SGPT 28 U/L (16-61); Albumin, Serum 3.8 g/dL (3.2-5.0); Alkaline Phosphatase 47 U/L (45-117); Anion Gap 5 (5-15); BUN 22 mg/dL (7-18); Calcium,Total 9.5 mg/dL (8.5-10.1); Chloride 102 mmol/L (98-107); Cholesterol 221 mg/dL (200); Creatinine, Serum 0.92 mg/dL (0.70-1.30); EST Glomerular Filtration Rate 91 mL/min (>60); Est Glom Filt Rate - Afr Amer 110 mL/min (>60); Globulin 3.5 g/dL (2.2-4.2); Glucose 82 mg/dL (74-106); High Density Lipoprotein 91 mg/dL; PSA,Total - Annual Screen 2.09 ng/mL (0.00-4.00); Potassium 4.3 mmol/L (3.5-5.1); Protein, Total 7.3 g/dL (6.4-8.2); Sodium Level 135 mmol/L (136-145); Triglycerides 59 mg/dL; Very Low Density Lipoprotein 12 mg/dL (5-40)
== END | disposition home or self-care (01) ==
LOC: BFHLAB 10:48
PROVIDERS: PCP Family Medicine; Referring Provider Family Medicine; Visit Provider Family Medicine
DX: Z00.00 Encounter for general adult medical examination without abnormal findings (principal); Z12.5 Encounter for screening for malignant neoplasm of prostate
CPT/HCPCS: 36415; 80053; 80061; 84153; 85025; G0103

== ENCOUNTER → 2024-12-23 | Outpatient (CLI) | payer OTHER, SELFPAY ==
[2024-12-23 12:28] LABS: Absolute Lymphocyte Count 1.32 X10^3/uL (0.83-4.51); Basophil# 0.02 X10^3/uL; Basophil% 0.5 % (0-1); Eosinophil# 0.26 X10^3/uL; Eosinophils% 6.2 % (0-5); Hematocrit 39.5 % (40-54); Hemoglobin 12.9 g/dL (13.0-16.5); Lymphocyte # 1.32 X10^3/ul (0.83-4.51); Lymphocyte % 31.7 % (19-41); Mean Corp Hgb Conc 32.7 g/dL (32-36); Mean Corpuscular Hgb 29.7 pg (27.0-32.0); Mean Platelet Vol. 10.2 fl (6.2-12.0); Monocyte# 0.52 X10^3/uL; Monocyte% 12.5 % (0-10); NRBC Flagged by Analyzer 0 % (0-5); Neutrophil # 2.04 X10^3/uL (2.7-7.7); Neutrophil % 48.9 % (47-70); Platelet Count 200 K/mm3 (150-450); RBC Distribution Width CV 13.3 % (11.6-14.6); Red Blood Count 4.34 M/mm3 (4.6-6.2); White Blood Count 4.2 K/mm3 (4.4-11.0)
--- OUTSIDE RECORDS SUMMARY | 2024-12-23 21:43 | XMS RPT_ITS | CCD ---
Author Organization [facility] Care Team Providers Care Export Administrator Name Role Phone ElaineEbenezerMichelle N Unavailable Elaine, Michelle N Unavailable Elaine, Michelle N Unavailable Radha Almazan Unavailable Elaine, Michelle N Unavailable Elaine Michelle N Unavailable Elaine Michelle N Unavailable Elaine, Michelle N Unavailable CARMELLA Mosqueda RN, Ailyn Ferrari Unavailable Unavailabl e Chele Michelle N Unavailable Anthony Phillips Unavailable Ailyn Agustin LPN Unavailable Clayton Rowland Unavailable Chele, Michelle N Unavailable Radha Almazan Unavailable [phone] Priyanka Padron MD Primary Care Provider [phone] Federico Renner Referring Unavailable Federico Renner Primary Care Unavailable Federico Renner Attending Unavailable Federico Renner Referring Unavailable Federico Renner Primary Care Unavailable Federico Renner Attending Unavailable Medications Completed/Discontinued Medications Medication Drug Class(es) Dates Sig (Normalized) Sig (Original) FLUoxetine 40 mg oral capsule (20 sources) Serotonin Reuptake Inhibitor Start: 09-01-2011 End: 08-18-2016 take 1 capsule by mouth once daily FLUOXETINE HCL 40 MG CAPS 1 capsule by mouth daily FLUOXETINE HCL [id number] Ra Davenport Comment on above: Take 1 capsule by [facility] once daily. omeprazole 20 mg delayed release oral capsule (18 sources) Proton Pump Inhibitor Start: 11-05-2015 take 1 tablet by mouth once daily OMEPRAZOLE MAGNESIUM 20.6 (20 Base) MG CPDR One tablet by mouth daily OMEPRAZOLE MAGNESIUM [id number] Serena Paulson PAPascual Problems Active Problems Problem Classification Problem Date Documented Date Episodic/Chronic Esophageal disorders (18 sources) Gastroesophageal reflux disease; Translations: [Gastro-esophageal reflux disease without esophagitis] Onset: 11-05-2015 11-05-2015 Chronic Mood disorders (18 sources) Mixed anxiety and depressive disorder; Translations: [Other specified anxiety disorders] Onset: 11-05-2015 11-05-2015 Chronic Osteoarthritis (18 sources) Osteoarthritis of acromioclavicular joint; Translations: [Primary osteoarthritis, left shoulder] Onset: 09-09-2016 09-09-2016 Chronic Thyroid disorders (1 source) Nontoxic multinodular goiter; Translations: [Nontoxic multinodular goiter] Onset: 09-01-2023 Chronic Unclassified (17 sources) Screening for malignant neoplasm of colon ; Translations: [Encounter for screening for malignant neoplasm of colon] Onset: 11-15-2016 11-15-2016 Unclassified (17 sources) General examination of patient ; Translations: [Encounter for other general examination] Onset: 03-26-2012 03-26-2012 Unclassified (6 sources) Encounter for check-up; Translations: [Encounter for general adult medical examination without abnormal findings] Onset: 05-08-2017 05-08-2017 Unclassified (7 sources) Postoperative physical examination; Translations: [Encounter for other specified surgical aftercare] Onset: 03-28-2017 03-28-2017 Past or Other Problems Problem Classification Problem Date Documented Da te Episodic/Chronic Abdominal hernia (18 sources) Hernia of abdominal cavity; Translations: [Unspecified abdominal hernia without obstruction or gangrene] Onset: 11-05-2015 11-05-2015 Episodic Biliary tract disease (1 source) Biliary colic; Translations: [Calculus of bile duct without cholangitis or cholecystitis without obstruction] Onset: 04-08-2014 04-08-2014 Episodic Calculus of urinary tract (2 sources) Kidney stone; Translations: [Calculus of kidney] Onset: 04-11-2008 04-11-2008 Episodic Genitourinary symptoms and ill-defined conditions (3 sources) Blood in urine; Translations: [Hematuria] Onset: 03-27-2008 03-27-2008 Episodic Inflammatory conditions of male genital organs (1 source) Prostatitis; Translations: [Inflammatory disease of prostate, unspecified] Onset: 01-14-2013 01-14-2013 Episodic Medical examination/evaluation (17 sources) Encounter for general adult medical examination without abnormal findings; Translations: [Encounter for general adult medical examination without abnormal findings] Onset: 11-05-2015 11-05-2015 Episodic Other aftercare (5 sources) Superior glenoid labrum lesion of left shoulder, subsequent encounter; Translations: [Encounter for other specified surgical aftercare] Onset: 02-16-2017 02-16-2017 Episodic Other bone disease and musculoskeletal deformities (18 sources) Osteolysis; Translations: [Osteolysis, left shoulder] Onset: 09-09-2016 09-09-2016 Episodic Other connective tissue disease (20 sources) Rupture subscapularis tendon; Translations: [Bicipital tendinitis, left shoulder] Onset: 08-18-2016 08-18-2016 Episodic Other connective tissue disease (1 source) Subacromial bursitis; Translations: [Bursitis of left shoulder] Onset: 08-18-2016 08-18-2016 Episodic Other connective tissue disease (1 source) Bicipital tendinitis, left shoulder; Translations: [Bicipital tendinitis, left shoulder] Onset: 08-18-2016 08-18-2016 Episodic Other connective tissue disease (1 source) Rotator cuff syndrome; Translations: [Unspecified rotator cuff tear or rupture of unspecified shoulder, not specified as traumatic] 10-31-2012 Episodic Other diseases of kidney and ureters (1 source) Cyst of kidney; Translations: [Cyst of kidney, acquired] Onset: 02-14-2013 02-14-2013 Episodic Other injuries and conditions due to external causes (1 source) Foreign body in bladder and urethra; Translations: [Foreign body in bladder, initial encounter] Onset: 05-19-2008 05-19-2008 Episodic Other male genital disorders (1 source) Hemospermia; Translations: [Hematospermia] Onset: 01-14-2013 01-14-2013 Episodic Other non-traumatic joint disorders (20 sources) Ankle pain; Translations: [Pain in unspecified shoulder] Onset: 05-22-2015 05-22-2015 Episodic Other non-traumatic joint disorders (1 source) Pain in left shoulder; Translations: [Pain in left shoulder] Onset: 08-18-2016 08-18-2016 Episodic Other non-traumatic joint disorders (1 source) Pain in unspecified shoulder; Translations: [Pain in unspecified shoulder] 10-31-2012 Episodic Sprains and strains (20 sources) Superior glenoid labrum lesion of left shoulder, initial encounter; Translations: [Strain of other muscle(s) and tendon(s) at lower leg level, left leg, initial encounter] Onset: 05-22-2015 09-09-2016 Episodic Results Test Name Value Interpretation Reference Range Facility CBC W/Diff, Automatedon 04- Absolute Lymph 1.26 X10 3/uL Normal 0.83-4.51 [facility] Comment on above: Performed By: #### L 100.0100, L500.4100, L500.4050, L501.9910 #### [facility] [address] [place], [address] Absolute Neut 2.2 X10 3/uL Normal 2.0-7.7 [facility] Comment on above: Performed By: #### L 100.0100, L500.4100, L500.4050, L501.9910 #### [facility] [address] [place], [address] Basophils/100 WBC (Bld) 1.0 % Normal 0-1 [facility] Comment on above: Performed By: #### L 100.0100, L500.4100, L500.4050, L501.9910 #### [facility] [address] [place], [address] Eosinophils/100 WBC (Bld) 4.6 % Normal 0-5 [facility] Comment on above: Performed By: #### L 100.0100, L500.4100, L500.4050, L501.9910 #### [facility] [address] [place], [address] Erythrocyte distribution width (RBC) [Ratio] 13.1 % Normal 11.6-14.6 [facility] Comment on above: Performed By: #### L 100.0100, L500.4100, L500.4050, L501.9910 #### [facility] [address] [place], [address] Hematocrit (Bld) [Volume fraction] 41.9 % Normal 40-54 [facility] Comment on above: Performed By: #### L 100.0100, L500.4100, L500.4050, L501.9910 #### [facility] [address] [place], [address] Hemoglobin (Bld) [Mass/Vol] 13.7 g/dL Normal 13.0-16.5 [facility] Comment on above: Performed By: #### L 100.0100, L500.4100, L500.4050, L501.9910 #### [facility] [address] [place], [address] IG% 0.200 Normal 0.0-0.9 [facility] Comment on above: Result Comment: IG% - Immature Granulocytes (promyelocytes, myelocytes and metamyelocytes) > 1% indicates that a LEFT SHIFT is Present. Performed By: #### L 100.0100, L500.4100, L500.4050, L501.9910 #### [facility] [address] [place], [address] Lymphocytes/100 WBC (Bld) 30.4 % Normal 19-41 [facility] Comment on above: Performed By: #### L 100.0100, L500.4100, L500.4050, L501.9910 #### [facility] [address] [place], [address] MCH (RBC) [Entitic mass] 29.9 pg Normal 27.0-32.0 [facility] Comment on above: Performed By: #### L 100.0100, L500.4100, L500.4050, L501.9910 #### [facility] [address] [place], [address] MCHC (RBC) [Mass/Vol] 32.7 g/dL Normal 32-36 [facility] Comment on above: Performed By: #### L 100.0100, L500.4100, L500.4050, L501.9910 #### [facility] [address] [place], [address] MCV (RBC) [Entitic vol] 91.5 fL Normal 80-94 [facility] Comment on above: Performed By: #### L 100.0100, L500.4100, L500.4050, L501.9910 #### [facility] [address] [place], [address] Monocytes/100 WBC (Bld) 11.8 % High 0-10 [facility] Comment on above: Performed By: #### L 100.0100, L500.4100, L500.4050, L501.9910 #### [facility] [address] [place], [address] Neutrophils/100 WBC (Bld) 52.0 % Normal 47-70 [facility] Comment on above: Performed By: #### L 100.0100, L500.4100, L500.4050, L501.9910 #### [facility] [address] [place], [address] Nucleated RBC (Bld) [#/Vol] 0 10*3/uL Normal 0-5 [facility] Comment on above: Performed By: #### L 100.0100, L500.4100, L500.4050, L501.9910 #### [facility] [address] [place], [address] Platelet mean volume (Bld) [Entitic vol] 9.7 fL Normal 6.2-12.0 [facility] Comment on above: Performed By: #### L 100.0100, L500.4100, L500.4050, L501.9910 #### [facility] [address] [place], [address] Platelets (Bld) [#/Vol] 225 10*3/uL Normal 150-450 [facility] Comment on above: Performed By: #### L 100.0100, L500.4100, L500.4050, L501.9910 #### [facility] [address] [place], [address] RBC (Bld) [#/Vol] 4.58 10*6/uL Low 4.6-6.2 [facility] Comment on above: Performed By: #### L 100.0100, L500.4100, L500.4050, L501.9910 #### [facility] [address] [place], [address] RDW SD 43.7 fl Normal 35.1-43.9 [facility] Comment on above: Performed By: #### L 100.0100, L500.4100, L500.4050, L501.9910 #### [facility] [address] [place], [address] WBC (Bld) [#/Vol] 4.1 10*3/uL Low 4.4-11.0 [facility] Comment on above: Performed By: #### L 100.0100, L500.4100, L500.4050, L501.9910 #### [facility] [address] [place], [address] Comprehensive Metabolic Prof [facility] 11-03-2023 Albumin [Mass/Vol] 3.8 g/dL Normal 3.2-5.0 [facility] Comment on above: Performed By: #### L 100.0100, L500.4100, L500.4050, L501.9910 #### [facility] [address] [place], [address] Albumin/Globulin [Mass ratio] 1.1 {ratio} Normal 0.9-2.4 [facility] Comment on above: Performed By: #### L 100.0100, L500.4100, L500.4050, L501.9910 #### [facility] [address] [place], [address] ALK P 47 U/L Normal 45-117 [facility] Comment on above: Performed By: #### L 100.0100, L500.4100, L500.4050, L501.9910 #### [facility] [address] [place], [address] ALT [Catalytic activity/Vol] 28 U/L Normal 16-61 [facility] Comment on above: Performed By: #### L 100.0100, L500.4100, L500.4050, L501.9910 #### [facility] [address] [place], [address] AST [Catalytic activity/Vol] 29 U/L Normal 15-37 [facility] Comment on above: Performed By: #### L 100.0100, L500.4100, L500.4050, L501.9910 #### [facility] [address] [place], [address] Bilirubin [Mass/Vol] 2.20 mg/dL High 0.20-1.00 [facility] Comment on above: Result Comment: For patients on eltrombopag therapy, use of Dimension Stephenson TBIL is not recommended. Performed By: #### L 100.0100, L500.4100, L500.4050, L501.9910 #### [facility] [address] [place], [address] BUN/CRE 24.0 RATIO High 10-20 [facility] Comment on above: Performed By: #### L 100.0100, L500.4100, L500.4050, L501.9910 #### [facility] [address] [place], [address] CA,Total 9.5 mg/dL Normal 8.5-10.1 [facility] Comment on above: Performed By: #### L 100.0100, L500.4100, L500.4050, L501.9910 #### [facility] [address] [place], [address] Chloride [Moles/Vol] 102 mmol/L Normal 98-107 [facility] Comment on above: Performed By: #### L 100.0100, L500.4100, L500.4050, L501.9910 #### [facility] [address] [place], [address] CO2 [Moles/Vol] 28.0 mmol/L Normal 21.0-32.0 [facility] Comment on above: Performed By: #### L 100.0100, L500.4100, L500.4050, L501.9910 #### [facility] [address] [place], [address] Creatinine [Mass/Vol] 0.92 mg/dL Normal 0.70-1.30 [facility] Comment on above: Result Comment: The validity of the calculated GFR GFRAA in patients over 70 years has not been determined. Clinical correlation is essential. Performed By: #### L 100.0100, L500.4100, L500.4050, L501.9910 #### [facility] [address] [place], [address] EST GFR - AA 110 mL/min Normal >60 [facility] Comment on above: Result Comment: Afri can Gibraltarian GFR Calc Performed By: #### L 100.0100, L500.4100, L500.4050, L501.9910 #### [facility] [address] [place], [address] GAP 5 Normal 5-15 [facility] Comment on above: Performed By: #### L 100.0100, L500.4100, L500.4050, L501.9910 #### [facility] [address] [place], [address] GFR/1.73 sq M.predicted among non-blacks MDRD (S/P/Bld) [Vol rate/Area] 91 mL/min/{1.73_m2} Normal >60 [facility] Comment on above: Result Comment: Non- GFR Calc Performed By: #### L 100.0100, L500.4100, L500.4050, L501.9910 #### [facility] [address] [place], [address] Globulin (S) [Mass/Vol] 3.5 g/dL Normal 2.2-4.2 [facility] Comment on above: Performed By: #### L 100.0100, L500.4100, L500.4050, L501.9910 #### [facility] [address] [place], [address] Glucose [Mass/Vol] 82 mg/dL Normal 74-106 [facility] Comment on above: Performed By: #### L 100.0100, L500.4100, L500.4050, L501.9910 #### [facility] [address] [place], [address] Potassium [Moles/Vol] 4.3 mmol/L Normal 3.5-5.1 [facility] Comment on above: Performed By: #### L 100.0100, L500.4100, L500.4050, L501.9910 #### [facility] [address] [place], [address] Sodium [Moles/Vol] 135 mmol/L Low 136-145 [facility] Comment on above: Performed By: #### L 100.0100, L500.4100, L500.4050, L501.9910 #### [facility] [address] [place], [address] T PROT 7.3 g/dL Normal 6.4-8.2 [facility] Comment on above: Performed By: #### L 100.0100, L500.4100, L500.4050, L501.9910 #### [facility] [address] [place], [address] Urea nitrogen [Mass/Vol] 22 mg/dL High 7-18 [facility] Comment on above: Performed By: #### L 100.0100, L500.4100, L500.4050, L501.9910 #### [facility] [address] [place], [address] Lipid Profileon 11-03-2023 Cholesterol [Mass/Vol] 221 mg/dL High 200 [facility] Comment on above: Result Comment: <200 mg/dL Desirable 200-240 mg/dL Borderline >240 mg/dL High Risk Performed By: #### L 100.0100, L500.4100, L500.4050, L501.9910 #### [facility] [address] [place], [address] Cholesterol in HDL [Mass/Vol] 91 mg/dL Normal [facility] Comment on above: Result Comment: The drugs N-Acetylcysteine and Metamizole may falsely depress this assay. Reference Range HDL <40 mg/dL Low HDL Cholesterol HDL >or= 60 mg/dL High HDL Cholesterol Performed By: #### L 100.0100, L500.4100, L500.4050, L501.9910 #### [facility] [address] [place], [address] Cholesterol in LDL [Mass/Vol] 118 mg/dL Normal 0-130 [facility] Comment on above: Performed By: #### L 100.0100, L500.4100, L500.4050, L501.9910 #### [facility] [address] [place], [address] Cholesterol in VLDL [Mass/Vol] 12 mg/dL Normal 5-40 [facility] Comment on above: Performed By: #### L 100.0100, L500.4100, L500.4050, L501.9910 #### [facility] [address] [place], [address] Triglyceride [Mass/Vol] 59 mg/dL Normal [facility] Comment on above: Result Comment: The drugs N-Acetylcysteine and Metamizole may falsely depress this assay. Serum Triglycerides Reference Interval Normal <150 mg/dL Borderline high 150 - 199 mg/dL High 200 - 499 mg/dL Very High > or = 500 mg/dL Performed By: #### L 100.0100, L500.4100, L500.4050, L501.9910 #### [facility] [address] [place], [address] PSA,Total - Annual Screenon 11-03-2023 PSA,TOT SCREEN 2.09 ng/mL Normal 0.00-4.00 [facility] Comment on above: Result Comment: This test was performed using the TPSA assay method for the untapt chemistry system. Values obtained with different assay methods cannot be used interchangably. When changing PSA assays in the course of monitoring a patient, additional sequential testing should be carried out to confirm baseline values. Performed By: #### L 100.0100, L500.4100, L500.4050, L501.9910 #### [facility] [address] [place], [address] Thyroidon 08-28-2023 Thyroid [facility] [address] [place] [address] Thyroid MR#: [id number] Acct: [id number] Name: ANGE DEUTSCH Jr. Rep #: [id number] : 1965 M 57 From: Efren damon MD PCP: Dr. Federico Renner DO Status: REG CLI Study: Thyroid Date of Exam: 08/28/23 Exam# [id number] Ordering Dr: Federico Renner DO [id number] STUDY: THYROID ULTRASOUND REASON FOR EXAM: Male, 57 years old. 1 YR FU OF THYROID ENLARGEMENT TECHNIQUE: Ultrasound evaluation of the thyroid was performed with real-time and static montano-scale imaging. COMPARISON: Comparison is made with prior study of August 18, 2022. FINDINGS: RIGHT LOBE: The right lobe of the thyroid gland is enlarged and measures 5.1 cm x 1.9 cm x 1.7 cm. There is a homogeneous echotexture. There is a 1.1 cm x 1.2 cm x 1 cm complex solid/cystic nodule in the lower pole of the right lobe of the thyroid. A similar-appearing nodular density measuring 8 mm x 6 mm x 6 mm is seen as well. There has been essentially no change. LEFT LOBE: The left lobe of the thyroid gland is enlarged and measures 5.6 cm x 1.8 cm x 1.9 cm. There is a homogeneous echotexture. Once again, 2 separate stable complex solid and cystic nodules are seen. The larger measures 8 mm x 8 mm x 6 mm. ISTHMUS: The isthmus measures 4 mm. Stable 6 mm x 5 mm x 3 mm nodule in the isthmus. The regional lymph nodes are normal. US/Thyroid IMPRESSION: Stable examination. Electronically Signed: Efren Katz MD at 8:58 EST , CC: Dr. Federico Renner, DO Inspector Penetrant: Signed [facility] Office Visiton 06-08-2017 Documentation of current medications (procedure) Done Invalid Interpretation Code [facility] Work Phone: Tobacco smoking status NHIS Former Invalid Interpretation Code [facility] Work Phone: Tobacco smoking status NHIS Tobacco smoking status NHIS Invalid Interpretation Code [facility] Work Phone: Tobacco use [facility] Never smoker Invalid Interpretation Code [facility] Work Phone: Office Visit: PPD Test Readi ngon 05-11-2017 PPD results in mm 0 mm Invalid Interpretation Code [facility] Work Phone: Office Visit: Nursingon 04-11 Documentation of current medications (procedure) Done Invalid Interpretation Code [facility] Work Phone: Office Visiton 03-28-2017 Documentation of current medications (procedure) Done Invalid Interpretation Code [facility] Work Phone: Tobacco smoking status NHIS Former Invalid Interpretation Code [facility] Work Phone: Tobacco use [facility] Never smoker Invalid Interpretation Code [facility] Work Phone: Office Visiton 02-16-2017 Documentation of current medications (procedure) Done Invalid Interpretation Code [facility] Work Phone: Protein mass conc Done [facility] Work Phone: Tobacco smoking status NHIS Former Invalid Interpretation Code [facility] Work Phone: Tobacco smoking status NHIS Never smoker [facility] Work Phone: Tobacco use [facility] Never smoker Invalid Interpretation Code [facility] Work Phone: Office Visiton 11-17-2016 Documentation of current medications (procedure) Done Invalid Interpretation Code [facility] Work Phone: Tobacco smoking status NHIS Former Invalid Interpretation Code [facility] Work Phone: Tobacco use [facility] Never smoker Invalid Interpretation Code [facility] Work Phone: Office Visit: colonoscopy co nsulton 11-15-2016 Documentation of current medications (procedure) Done Invalid Interpretation Code [facility] [employer] Work Phone: Fall risk assessment No Invalid Interpretation Code [facility] [employer] Work Phone: Tobacco smoking status NHIS Former Invalid Interpretation Code [facility] [employer] Work Phone: Tobacco use HS Never smoker Invalid Interpretation Code [facility] [employer] Work Phone: Office Visit: Establish PCPo ricarda 04-27-2015 Cholesterol 153 mg/dL Invalid Interpretation Code [facility] [employer] Work Phone: Cholesterol to HDL Ratio 3.56 {ratio} Invalid Interpretation Code [facility] [employer] Work Phone: HDL Cholesterol 43 mg/dL Invalid Interpretation Code [facility] [employer] Work Phone: LDL Cholesterol 92 mg/dL Invalid Interpretation Code [facility] [employer] Work Phone: Triglyceride 88 mg/dL Invalid Interpretation Code [facility] [employer] Work Phone: Vital Signs Date Time Vital Sign Value Performing Clinician Facility 05-08-2017 07:56-0400 BMI (Body Mass Index) 35.67 kg/m2 Clayton [facility] Work Phone: 05-08-2017 07:56-0400 BP Diastolic 82 mm[Hg] Clayton [facility] Work Phone: 05-08-2017 07:56-0400 BP Systolic 126 mm[Hg] [place] [facility] Work Phone: 05-08-2017 07:56-0400 Height 182.88 cm [place] [facility] Work Phone: 05-08-2017 07:56-0400 Pulse (Heart Rate) 80 /min [place] [facility] Work Phone: 05-08-2017 07:56-0400 Weight 119.[address] [facility] Work Phone: 11-15-2016 10:34-0400 BMI (Body Mass Index) 35.58 kg/m2 Ailyn Mosqueda RN RN [facility] Work Phone: 11-15-2016 10:34-0400 BP Diastolic 98 mm[Hg] Ailyn Mosqueda RN RN [facility] Work Phone: 11-15-2016 10:34-0400 BP Systolic 141 mm[Hg] Ailyn Mosqueda RN RN [facility] Work Phone: 11-15-2016 10:34-0400 Pulse (Heart Rate) 62 /min Ailyn Mosqueda RN RN [facility] Work Phone: 11-15-2016 10:34-0400 Pulse Oximetry 97 % Ailyn Mosqueda RN RN [facility] Work Phone: 11-15-2016 10:34-0400 Weight 119.02 kg Ailyn Mosqueda RN RN [facility] Work Phone: 11-05-2015 11:29-0400 Body Temperature 97.6 [degF] Ailyn Mosqueda RN RN [facility] Work Phone: 11-05-2015 11:29-0400 BSA (Body Surface Area) 2.36 m2 Ailyn Mosqueda RN RN [facility] Work Phone: 11-05-2015 11:29-0400 Respiratory Rate 14 /min Ailyn Mosqueda RN RN [facility] Work Phone: 03-26-2012 15:13-0400 BP Diastolic 82 mm[Hg] Ailyn Mosqueda RN RN [facility] Work Phone: 03-26-2012 15:13-0400 BP Systolic 129 mm[Hg] Ailyn Mosqueda RN RN [facility] Work Phone: 03-26-2012 15:13-0400 Pulse (Heart Rate) 56 /min Ailyn Mosqueda RN RN [facility] Work Phone: 12-30-2010 10:37-0400 Height 182.88 cm Ailyn Mosqueda RN RN [facility] Work Phone: Encounters Encounter Date Encounter Type Care Provider Facility Start: 01-27-2024 Encounter for genera l adult medical examination without abnormal findings [facility] Start: 11-03-2023 End: 11-03-2023 ambulatory [facility] Facility:[facility] Start: 08-28-2023 End: 08-28-2023 ambulatory [facility] Facility:[facility] Start: 11-05-2015 Encounter for genera l adult medical examination without abnormal findings Radha Almazan [facility] Work Phone: Start: 04-01-2014 End: 04-01-2014 Telephone encounter Rex Anguiano MD Work Phone: General Surgery Comment on above: Schedule Surgery ( laparoscopic cholecystectomy with intraoperative choleangiogram [facility]) Procedures Date Procedure Procedure Detail Performing Clinician Start: 11-15-2016 Screening for malignant neoplasm of colon Screening, colon ca Radha Almazan Start: 03-26-2012 General examination of patient HEALTH MAINTENANCE EXAM Radha Almazan Start: 11-19-2010 End: 11-16-2012 Cardiovascular stress test using treadmill Yvon Núñez MD Start: 11-19-2010 End: 11-16-2012 Chest x-ray Yvon Núñez MD Start: 11-19-2010 End: 11-16-2012 Electrocardiogram Yvon Núñez MD Start: 11-19-2010 End: 11-16-2012 Pulmonary Fuction Test - complete Yvon Núñez MD Start: 11-19-2010 End: 11-16-2012 TST Yvon Núñez MD Start: 11-19-2010 End: 11-16-2012 Cardiovascular stress test using treadmill Yvon Núñez MD Start: 11-19-2010 End: 11-16-2012 Chest x-ray Yvon Núñez MD Start: 11-19-2010 End: 11-16-2012 Electrocardiogram Yvon Núñez MD Start: 11-19-2010 End: 11-16-2012 Pulmonary Fuction Test - complete Yvon Núñez MD Start: 11-19-2010 End: 11-16-2012 TST Yvon Núñez MD Plan of Treatment Date Care Activity Detail Author Start: 03-10-2021 Influenza vaccination INFLUENZA (Season Ended) [facility] Start: 06-08-2017 End: 06-08-[address] [facility] Work Phone: Start: 06-06-2017 End: 06-06-[address] [facility] Work Phone: Start: 05-11-2017 End: 05-11-[address] [facility] Work Phone: Start: 05-09-2017 End: 05-09-[address] [facility] Work Phone: Start: 05-08-2017 End: 05-08-2017 Chest x-ray X-Ray, Chest, PA & Lateral [facility] Work Phone: Start: 04-25-2017 End: 04-25-[address] [facility] Work Phone: Start: 03-29-2017 End: 03-29-2017 Physical Therapy General Physical Therapy [facility] [address], [address] [place] [address], [id number] [facility] Work Phone: Start: 03-29-2017 End: 03-29-2017 Physical Therapy General Physical Therapy [facility], [address] [place] [address], [id number] [facility] Work Phone: Start: 03-28-2017 End: 03-28-[address] [facility] Work Phone: Start: 03-15-2017 End: 03-15-[address] [facility] Work Phone: Start: 02-16-2017 End: 02-16-[address] [facility] Work Phone: Start: 01-06-2017 End: 01-06-[address] [facility] [employer] Work Phone: Start: 11-23-2016 End: 11-23-2016 Physical Therapy General Physical Therapy [facility], [address] [place] [address], [id number] [facility] Work Phone: Start: 11-23-2016 End: 11-23-2016 Physical Therapy General Physical Therapy [facility], [address] [place] [address], [id number] [facility] Work Phone: Start: 11-17-2016 End: 11-17-[address] [facility] [employer] Work Phone: Start: 11-15-2016 End: 11-15-2016 Colonoscopy flx dx w/collj spec when pfrmd Colonoscopy [facility] Work Phone: Start: 11-15-2016 End: 11-15-[address] [facility] [employer] Work Phone: Start: 11-15-2016 End: 11-15-[address] [facility] [employer] Work Phone: Start: 2016 Screening for malignant neoplasm of colon [facility] Start: 2016 SHINGRIX VACCINE (1 of 2) SHINGRIX VACCINE (1 of 2) [facility] Start: 08-31-2016 End: 08-31-2016 Physical Therapy General Physical Therapy [facility], [address] [place] [address], [place], [address] [facility] Work Phone: Start: 08-31-2016 End: 08-31-2016 Physical Therapy General Physical Therapy [facility], [address] [place] [address], [place], [address] [facility] Work Phone: Start: 08-18-2016 End: 08-18-2016 Mri any jt upper extremity w/o contrast matrl MRI Joint Upper Extremity [facility] Work Phone: Start: 08-18-2016 End: 08-18-2016 Radex shoulder complete minimum 2 views X-Ray, Shoulder [facility] Work Phone: Start: 08-18-2016 End: 08-18-2016 Mri joint upr extrem w/o dye MRI Joint Upper Extremity [facility] Work Phone: Start: 08-18-2016 End: 08-18-2016 X-ray exam of shoulder X-Ray, Shoulder [facility] [employer] Work Phone: Start: 11-05-2015 End: 11-05-2015 Surgery Referral Surgery Referral Rex Anguiano MD, [facility] - General Surgery, [address] [place], [address] [facility] Work Phone: Start: 11-05-2015 End: 11-05-2015 Surgery Referral Surgery Referral Rex Anguiano MD, [facility] - General Surgery, [address] [place], [address] [facility] Work Phone: Start: 05-27-2015 End: 05-27-2015 Physical Therapy General Physical Therapy [facility], [address] [place] [address], [id number] [facility] Work Phone: Start: 05-27-2015 End: 05-27-2015 Physical Therapy General Physical Therapy [facility], [address] [place] [address], [id number] [facility] Work Phone: Start: 05-22-2015 End: 05-22-2015 Radex ankle complete minimum 3 views X-Ray, Ankle [facility] Work Phone: Start: 05-22-2015 End: 05-22-2015 X-ray exam of ankle X-Ray, Ankle [facility] Work Phone: Start: 10-12-2011 DIABETES SCREEN DIABETES SCREEN [facility] Start: 11-19-2010 End: 11-16-2012 Cardiovascular stress test using treadmill Treadmill stress test (no imaging) [facility] Work Phone: Start: 11-19-2010 End: 11-16-2012 Chest x-ray X-Ray, Chest, PA & Lateral [facility] Work Phone: Start: 11-19-2010 End: 11-16-[address] [facility] Work Phone: Start: 11-19-2010 End: 11-16-2012 Pulmonary Fuction Test - complete Pulmonary Fuction Test - complete [facility] Work Phone: Start: 11-19-2010 End: 11-16-[address] [facility] Work Phone: Start: 11-19-2010 End: 11-16-2012 Cardiovascular stress test using treadmill Treadmill stress test (no imaging) [facility] [employer] Work Phone: Start: 11-19-2010 End: 11-16-2012 Chest x-ray X-Ray, Chest, PA & Lateral [facility] [employer] Work Phone: Start: 11-19-2010 End: 11-16-[address] [facility] [employer] Work Phone: Start: 11-19-2010 End: 11-16-2012 Pulmonary Fuction Test - complete Pulmonary Fuction Test - complete [facility] [employer] Work Phone: Start: 11-19-2010 End: 11-16-[address] [facility] [employer] Work Phone: Start: 2001 LIPID SCREEN LIPID SCREEN [facility] Start: 1985 Urine microalbumin profile DTAP,TDAP,TD (1 - Tdap) [facility] Start: 1984 HEPATITIS C SCREENING HEPATITIS C SCREENING [facility] Start: 1984 HIV SCREENING HIV SCREENING [facility] Start: 1978 Adult depression screening assessment DEPRESSION SCREENING [facility] Payers Date Payer Category Payer Self-pay 2023 Private Health Insurance [id number] 2012 Unknown MMO [employer] [id number] 2012-Present PPO [id number] Unknown [id number] Unknown [id number] Social History Date Type Detail Facility Start: 03-31-2014 Tobacco smoking stat us NHIS Never smoker [facility] Start: 03-31-2014 Tobacco use and exposure Former user [facility] End: 07-10-2008 History of tobacco use Chews Tobacco [facility] Start: 03-31-2014 Alcohol intake Current drinke r of alcohol (finding) [facility] Start: 1965 Sex Assigned At Not on file [facility] Summary Purpose Family History No Family History Records Found Advance Directives No Advanced Directives Records Found Additional Source Comments Source Comments (unrecognize d section and content) In the event this informatio n is protected by the Federal Confidentiality of Alcohol and Drug Abuse Patient Records regulations: The Federal rules restrict any use of the information to criminally investigate or prosecute any alcohol or drug abuse patient.[facility] Reason for Visit (unrecogniz ed section and content) Reason Onset Date Comments Schedule Surgery 04/01/2014 04-08-2014 lapa roscopic cholecystectomy with intraoperative choleangiogram [facility] (unrecognized sect ion and content) No Status Records Found INFORMATION SOURCE (unrecogn ized section and content) DATE CREATED AUTHOR 01/30/2024 [facility] FOR RECORDS PERTAINING TO PATIENTS WHO ARE OR HAVE BEEN ENROLLED IN A CHEMICAL DEPENDENCY/SUBSTANCEABUSE PROGRAM, SOME INFORMATION MAY BE OMITTED. This clinical summary was aggregated from multiple sources. Caution should be exercised in using it in the provision of clinical care. This summary normalizes information from multiple sources, and as a consequence, information in this document may materially change the coding, format and clinical context of patient data. In addition, data may be omitted in some cases. CLINICAL DECISIONS SHOULD BE BASED ON THE PRIMARY CLINICAL RECORDS. [employer] [facility]. provides no warranty or guarantee of the accuracy or completeness of information in this document.
[2024-12-24 15:54] LABS: ALB/GLOB Ratio 1.6 RATIO (0.9-2.4); AST(SGOT) 53 U/L (<=37); Alanine Aminotransfer ALT/SGPT 26 U/L (<=46); Albumin, Serum 4.1 g/dL (3.5-5.0); Alkaline Phosphatase 49 U/L (40-129); Anion Gap 10 (5-15); BUN 22 mg/dL (4-19); BUN/Creat Ratio 25.3 RATIO (10-20); Calcium,Total 9.6 mg/dL (7.6-11.0); Carbon Dioxide 24.8 mmol/L (21.0-32.0); Chloride 103 mmol/L (98-108); Cholesterol 205 mg/dL (<=200); Creatinine, Serum 0.88 mg/dL (0.70-1.20); EST Glomerular Filtration Rate 100 (>60); Globulin 2.6 g/dL (2.2-4.2); Glucose 85 mg/dL (70-99); High Density Lipoprotein 80 mg/dL; Low Density Lipoprotein Calc. 114 mg/dL; Potassium 4.7 mmol/L (3.3-5.1); Protein, Total 6.7 g/dL (5.9-8.4); Sodium Level 138 mmol/L (133-145); Triglycerides 57 mg/dL; Very Low Density Lipoprotein 11 mg/dL (5-40); cholesterol:hdl ratio screen 2.57
[2024-12-24 15:59] LABS: PSA,Total - Annual Screen 1.87 ng/mL (0.02-4.00)
== END | disposition home or self-care (01) ==
LOC: BFHLAB 09:29
PROVIDERS: PCP Family Medicine; Visit Provider Family Medicine
DX: Z00.00 Encounter for general adult medical examination without abnormal findings (principal); Z12.5 Encounter for screening for malignant neoplasm of prostate; E04.2 Nontoxic multinodular goiter
CPT/HCPCS: 36415; 80053; 80061; 84153; 84443; 85025; G0103